=== PATIENT | female | born 1940 | race Caucasian/White ===

== ENCOUNTER 2016-12-31 13:17 | Inpatient (IN) | payer OTHER, MEDICARE ==
[2016-12-31] VITALS (10 sets, daily range): BP systolic 80–93; BP diastolic 43–52; PULSE 73–92; RESP 18–26; TEMP 97.9–98.5; O2SAT 93–100
[~2016-12-31] VITALS: Ht 157.5 cm; Wt 61.1 kg
[2016-12-31] MEDS ORDERED: SODIUM CHLOR 0.9% 1000 ML INJ 1,000 ML IV SCH (13:33)
[2016-12-31] MEDS ORDERED: SODIUM CHLORIDE 0.9% FLUSH 10 ML FLUSH IV FLUSH PRN ×2 (13:45→16:15)
[2016-12-31 13:56] LABS: HEMATOCRIT 25.8 % (35.0-46.0); MEAN CELL VOLUME 88.3 FL (80.0-100.0); MEAN CORPUSCULAR HEMOGLOBIN 29.2 PG (27.0-34.0); PLATELET COUNT 162 TH/MM3 (150-450); RED BLOOD COUNT 2.92 MIL/MM3 (4.00-5.30); RED CELL DISTRIBUTION WIDTH 15.5 % (11.6-17.2); WHITE BLOOD COUNT 11.9 TH/MM3 (4.0-11.0)
[2016-12-31 14:01] LABS: HEMO FLAGS AUTO DIFF
[2016-12-31 14:04] LABS: PROTHROMBIN TIME - PATIENT 11.3 SEC (9.8-11.6)
--- NOTE | 2016-12-31 14:42 | PD ---
HPI Chief Complaint: Abnormal Results Time Seen by Provider: 13:28 Travel History International Travel<30 days: No Contact w/Intl Traveler<30days: No Traveled to known affect area: No History of Present Illness HPI 76-year-old female came to the emergency room for history of lightheadedness and hypotension. 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 She was in [place] for 6 weeks where she was given blood transfusion multiple times for significant anemia. She also had multiple workup done to find out the reason for her anemia and all the test results as per the patient were within normal limits. Finally got the diagnosis of MDS. She has a manager assurance here she sees who is Dr. Bowen. Patient went to see her primary care physician today and mentioned about the lightheadedness. Blood pressure was low in the office and she was sent here to be evaluated. In triage her blood pressure was in the 80s. Patient was brought in straight back. No history of chest pain. No history of nausea vomiting or diarrhea. No history of bleeding from anywhere. Patient says her last hemoglobin one week ago was 9. PFSH Past Medical History Narrative Medical List of her past medical, surgical, social and family history is reviewed from the nursing note. Cardiovascular Problems: Yes Medical other: Yes (MDA, LUMBARECTOMY ) Tetanus Vaccination: < 5 Years Influenza Vaccination: Yes Past Surgical History Hysterectomy: Yes Other Surgery: Yes (RIGHT LUMPECTOMY) Social History Alcohol Use: No Tobacco Use: Yes Substance Use: No Allergies-Medications (Allergen,Severity, Reaction): Coded Allergies: penicillin G (Verified Allergy, Severe, SWELLING, RASH, 12/31/16) Comments List of her allergies reviewed from the nursing note. Reported Meds & Prescriptions Reported Meds & Active Scripts Active Active Prescriptions or Reported Medications Unobtainable Narrative Medication List of her home medications reviewed from the nursing note Review of Systems Except as stated in HPI: all other systems reviewed are Neg Physical Exam Narrative GENERAL: Awake, alert, moderate distress SKIN: Focused skin assessment warm/dry. Pale HEAD: Atraumatic. Normocephalic. EYES: Pupils equal and round. No scleral icterus. No injection or drainage. ENT: No nasal bleeding or discharge. Mucous membranes pink and moist. NECK: Trachea midline. No JVD. CARDIOVASCULAR: Regular rate and rhythm. No murmur appreciated. RESPIRATORY: No accessory muscle use. Clear to auscultation. Breath sounds equal bilaterally. GASTROINTESTINAL: Abdomen soft, non-tender, nondistended. Hepatic and splenic margins not palpable. MUSCULOSKELETAL: No obvious deformities. No clubbing. No cyanosis. No edema. NEUROLOGICAL: Awake and alert. No obvious cranial nerve deficits. Motor grossly within normal limits. Normal speech. PSYCHIATRIC: Appropriate mood and affect; insight and judgment normal. Data Data Last Documented VS Vital Signs Date Time Temp Pulse Resp B/P (MAP) Pulse Ox O2 Delivery O2 Flow Rate FiO2 12/31/16 14:44 74 21 80/45 (57) 100 Room Air 12/31/16 13:40 98.4 Orders Orders Complete Blood Count With Diff (12/31/16 13:33) Comprehensive Metabolic Panel (12/31/16 13:33) Prothrombin Time / Inr (Pt) (12/31/16 13:33) Urinalysis - C+S If Indicated (12/31/16 13:33) Iv Access Insert/Monitor (12/31/16 13:33) Ecg Monitoring (12/31/16 13:33) Oximetry (12/31/16 13:33) Sodium Chlor 0.9% 1000 Ml Inj (Ns 1000 M (12/31/16 13:33) Sodium Chloride 0.9% Flush (Ns Flush) (12/31/16 13:45) Electrocardiogram (12/31/16 13:33) Type And Screen (12/31/16 13:33) Sodium Chlor 0.9% 1000 Ml Inj (Ns 1000 M (12/31/16 14:45) Admit Order (Ed Use Only) (12/31/16 15:41) Labs Laboratory Tests Test 12/31/16 13:42 12/31/16 14:15 12/31/16 14:42 White Blood Count 11.9 TH/MM3 Red Blood Count 2.92 MIL/MM3 Hemoglobin 8.5 GM/DL Hematocrit 25.8 % Mean Corpuscular Volume 88.3 FL Mean Corpuscular Hemoglobin 29.2 PG Mean Corpuscular Hemoglobin Concent 33.0 % Red Cell Distribution Width 15.5 % Platelet Count 162 TH/MM3 Mean Platelet Volume 12.1 FL CBC Comment AUTO DIFF Differential Total Cells Counted 100 Neutrophils % (Manual) 36 % Lymphocytes % 22 % Monocytes % 29 % Neutrophils # (Manual) 4.4 TH/MM3 Metamyelocytes 1 % Nucleated Red Blood Cells 7 /100 WBC Differential Comment FINAL DIFF MANUAL Atypical Lymphocytes % Blastocytes 12 % Platelet Estimate NORMAL Platelet Morphology Comment ENLARGED Prothrombin Time 11.3 SEC Prothromb Time International Ratio 1.0 RATIO Blood Urea Nitrogen 17 MG/DL Creatinine 0.64 MG/DL Random Glucose 84 MG/DL Total Protein 5.0 GM/DL Albumin 2.6 GM/DL Calcium Level 7.3 MG/DL Alkaline Phosphatase 36 U/L Aspartate Amino Transf (AST/SGOT) 15 U/L Alanine Aminotransferase (ALT/SGPT) 15 U/L Total Bilirubin 0.6 MG/DL Sodium Level 142 MEQ/L Potassium Level 4.0 MEQ/L Chloride Level 110 MEQ/L Carbon Dioxide Level 26.2 MEQ/L Anion Gap 6 MEQ/L Estimat Glomerular Filtration Rate 90 ML/MIN Protein Corrected Calcium 8.5 MG/DL Urine Color YELLOW Urine Turbidity CLEAR Urine pH 6.5 Urine Specific [place] 1.010 Urine Protein NEG mg/dL Urine Glucose (UA) NEG mg/dL Urine Ketones NEG mg/dL Urine Occult Blood NEG Urine Nitrite NEG Urine Bilirubin NEG Urine Urobilinogen LESS THAN 2.0 MG/DL Urine Leukocyte Esterase NEG Urine WBC 1 /hpf Urine Squamous Epithelial Cells 1 /hpf Urine Bacteria OCC /hpf Microscopic Urinalysis Comment CULT NOT INDICATED MDM Medical Decision Making Medical Screen Exam Complete: Yes Emergency Medical Condition: Yes Medical Record Reviewed: Yes Interpretation(s) Twelve-lead EKG is reviewed by me. Normal sinus rhythm, left axis deviation, nonspecific ST-T wave changes. Heart rate of 76 beats per minute. Differential Diagnosis hypovolemia, symptomatic anemia, elect right abnormalities Narrative Course 3:40 PM blood test results of back and hemoglobin is 8.5 which is not significantly changed since her last hemoglobin. Patient is getting second liter of IV fluid bolus. She continues to be hypotensive. I have admitted her to the hospitalist. 4:58 PM I got a phone call from Dr. Hoffman from pathology who wanted to let me know that on patient's peripheral smear she saw multiple blasts with Shanelle rods. She wanted me to let an oncologist know. Since patient has oncologist I spoke with Dr. Bowen was notified about this. I will let the hospitalist know about this as well. Procedures EKG Prior to Arrival: No Physician Communication Physician Communication Dr. Jessi Portillo Diagnosis Primary Impression: Hypotension Qualified Codes: I95.9 - Hypotension, unspecified Additional Impression: Blast leukemia Qualified Codes: C95.00 - Acute leukemia of unspecified cell type not having achieved remission Admitting Information Admitting Physician Requests: Observation Scripts Unable to Obtain Active Prescriptions or Reported Meds Michael Fernandez MD Dec 31, 2016 14:42
[2016-12-31 14:43] LABS: BICARBONATE 26.2 MEQ/L (21.0-32.0); CALCIUM-PROTEIN CORRECTED 8.5 MG/DL (8.5-10.1); TOTAL BILIRUBIN ADULT 0.6 MG/DL (0.2-1.0)
[2016-12-31] MEDS ORDERED: SODIUM CHLOR 0.9% 1000 ML INJ 1,000 ML IV ONE ×3 (14:45→23:15)
[2016-12-31 14:47] LABS: BLASTS 12 % (0-0); CORRECTED NUCLEATED RBC 7 /100 WBC (0-0); METAMYELOCYTES 1 % (0-1); NEUTROPHIL # MANUAL DIFF 4.4 TH/MM3 (1.8-7.7); POLYS (SEG NEUTROPHILS) 36 % (16-70); WBC DIFF SAMPLE 100
[2016-12-31 14:48] LABS: PLATELET ESTIMATE SMEAR NORMAL (NORMAL); PLATELET MORPHOLOGY ENLARGED (NORMAL); SCAN/DIFF FINAL DIFF MANUAL
[2016-12-31 15:02] LABS: BACTERIA, URINE OCC /hpf; BLOOD, URINE NEG (NEG); COMMENT (UR) CULT NOT INDICATED; CULTURE IF INDICATED CULT NOT INDICATED; GLUCOSE,URINE NEG (NEG); KETONE, URINE NEG (NEG); NITRITE,URINE NEG (NEG); PH, URINE 6.5 (5.0-8.5); SQUAMOUS EPITHELIAL CELL URINE 1 /hpf (0-5); URINE COLOR YELLOW (YELLW/STRAW)
--- NOTE | 2016-12-31 16:09 | HHI.HP ---
[facility] Service [facility] Primary Care Physician Raza Zuluaga M.D. Admission Diagnosis hypotension, anemia Diagnoses: Travel History International Travel<30 Days: No Contact w/Intl Traveler <30 Da: No Traveled to Known Affected Are: No Past Family Social History Past Medical History Cardiovascular Problems: Yes MDS Past Surgical History Hysterectomy: Yes Other Surgery: Yes (RIGHT LUMPECTOMY) Allergies: Coded Allergies: penicillin G (Verified Allergy, Severe, SWELLING, RASH, 12/31/16) Social History Alcohol Use: No Tobacco Use: Yes Substance Use: No Physical Exam Vital Signs Vital Signs Date Time Temp Pulse Resp B/P (MAP) Pulse Ox O2 Delivery O2 Flow Rate FiO2 12/31/16 14:44 74 21 80/45 (57) 100 Room Air 12/31/16 13:40 98.4 79 26 84/49 (61) 98 Room Air 12/31/16 13:38 23 98 Room Air 12/31/16 13:31 84 20 98 Room Air 12/31/16 13:24 83 23 93/52 (66) 96 12/31/16 13:19 98.4 92 20 84/43 (57) 93 Physical Exam GENERAL: This is a well-nourished, well-developed patient, in no apparent distress. SKIN: No rashes, ecchymoses or lesions. Cool and dry. HEAD: Atraumatic. Normocephalic. No temporal or scalp tenderness. EYES: Pupils equal round and reactive. Extraocular motions intact. No scleral icterus. No injection or drainage. ENT: Nose without bleeding, purulent drainage or septal hematoma. Throat without erythema, tonsillar hypertrophy or exudate. Uvula midline. Airway patent. NECK: Trachea midline. No JVD or lymphadenopathy. Supple, nontender, no meningeal signs. CARDIOVASCULAR: Regular rate and rhythm without murmurs, gallops, or rubs. RESPIRATORY: Clear to auscultation. Breath sounds equal bilaterally. No wheezes , rales, or rhonchi. GASTROINTESTINAL: Abdomen soft, non-tender, nondistended. No hepato-splenomegaly , or palpable masses. No guarding. MUSCULOSKELETAL: Extremities without clubbing, cyanosis, or edema. No joint tenderness, effusion, or edema noted. No calf tenderness. Negative Homans sign bilaterally. NEUROLOGICAL: Awake and alert. Cranial nerves II through XII intact. Motor and sensory grossly within normal limits. Five out of 5 muscle strength in all muscle groups. Normal speech. Laboratory Laboratory Tests Test 12/31/16 13:42 12/31/16 14:15 12/31/16 14:42 White Blood Count 11.9 Red Blood Count 2.92 Hemoglobin 8.5 Hematocrit 25.8 Mean Corpuscular Volume 88.3 Mean Corpuscular Hemoglobin 29.2 Mean Corpuscular Hemoglobin Concent 33.0 Red Cell Distribution Width 15.5 Platelet Count 162 Mean Platelet Volume 12.1 CBC Comment AUTO DIFF Differential Total Cells Counted 100 Neutrophils % (Manual) 36 Lymphocytes % 22 Monocytes % 29 Neutrophils # (Manual) 4.4 Metamyelocytes 1 Nucleated Red Blood Cells 7 Differential Comment FINAL DIFF MANUAL Atypical Lymphocytes Blastocytes 12 Platelet Estimate NORMAL Platelet Morphology Comment ENLARGED Prothrombin Time 11.3 Prothromb Time International Ratio 1.0 Blood Urea Nitrogen 17 Creatinine 0.64 Random Glucose 84 Total Protein 5.0 Albumin 2.6 Calcium Level 7.3 Alkaline Phosphatase 36 Aspartate Amino Transf (AST/SGOT) 15 Alanine Aminotransferase (ALT/SGPT) 15 Total Bilirubin 0.6 Sodium Level 142 Potassium Level 4.0 Chloride Level 110 Carbon Dioxide Level 26.2 Anion Gap 6 Estimat Glomerular Filtration Rate 90 Protein Corrected Calcium 8.5 Urine Color YELLOW Urine Turbidity CLEAR Urine pH 6.5 Urine Specific [place] 1.010 Urine Protein NEG Urine Glucose (UA) NEG Urine Ketones NEG Urine Occult Blood NEG Urine Nitrite NEG Urine Bilirubin NEG Urine Urobilinogen LESS THAN 2.0 Urine Leukocyte Esterase NEG Urine WBC 1 Urine Squamous Epithelial Cells 1 Urine Bacteria OCC Microscopic Urinalysis Comment CULT NOT INDICATED Result Diagram: 12/31/16 1342 12/31/16 1415 Caprini VTE Risk Assessment Caprini Risk Assessment Model Point Value = 1 Point Value = 2 Point Value = 3 Point Value = 5 Age 41-60 Minor surgery BMI > 25 kg/m2 Swollen legs Varicose veins or History of unexplained or recurrent spontaneous Oral contraceptives or hormone replacement Sepsis (< 1 month) Serious lung disease, including pneumonia (< 1 month) Abnormal pulmonary function Acute myocardial infarction Congestive heart failure (< 1 month) History of inflammatory bowel disease Medical patient at bed rest Age 61-74 Arthroscopic surgery Major open surgery (> 45 min) Laparoscopic surgery (> 45 min) Malignancy Confined to bed (> 72 hours) Immobilizing plaster cast Central venous access Age >= 75 History of VTE Family history of VTE Factor V Leiden Prothrombin [id number] Lupus anticoagulant Anticardiolipin antibodies Elevated serum homocysteine Heparin-induced thrombocytopenia Other congenital or acquired thrombophilia Stroke (< 1 month) Elective arthroplasty Hip, pelvis, or leg fracture Acute spinal cord injury (< 1 month) Prophylaxis Regimen Total Risk Factor Score Risk Level Prophylaxis Regimen 0-1 Low Early ambulation 2 Moderate Order ONE of the following: *Sequential Compression Device (SCD) *Heparin 5000 units SQ BID 3-4 Higher Order ONE of the following medications: *Heparin 5000 units SQ TID *Enoxaparin/Lovenox 40 mg SQ daily (WT < 150 kg, CrCl > 30 mL/min) *Enoxaparin/Lovenox 30 mg SQ daily (WT < 150 kg, CrCl > 10-29 mL/min) *Enoxaparin/Lovenox 30 mg SQ BID (WT < 150 kg, CrCl > 30 mL/min) AND/OR *Sequential Compression Device (SCD) 5 or more Highest Order ONE of the following medications: *Heparin 5000 units SQ TID (Preferred with Epidurals) *Enoxaparin/Lovenox 40 mg SQ daily (WT < 150 kg, CrCl > 30 mL/min) *Enoxaparin/Lovenox 30 mg SQ daily (WT < 150 kg, CrCl > 10-29 mL/min) *Enoxaparin/Lovenox 30 mg SQ BID (WT < 150 kg, CrCl > 30 mL/min) AND *Sequential Compression Device (SCD) Jayce Boyer MD Dec 31, 2016 16:09
[2016-12-31] MEDS ORDERED: NALOXONE HCL 0.4 MG/ML AMP IV PUSH PRN (16:15)
[2016-12-31] MEDS ORDERED: ONDANSETRON HCL 4 MG/2 ML VIAL IVP PRN (16:15)
[2016-12-31] MEDS ORDERED: ACETAMINOPHEN 325 MG TAB PO PRN ×2 (16:15)
[2016-12-31] MEDS ORDERED: RESP: ALBUTEROL 2.5 MG/IPRATROPIUM 0.5 MG NEB (PRN) NEB (16:15)
[2016-12-31] MEDS ORDERED: MAGNESIUM HYDROXIDE SUSP 30 ML CUP PO PRN (16:15)
[2016-12-31] MEDS: SODIUM CHLOR 0.9% 1000 ML INJ 1,000 ML IV SCH (16:42)
--- NOTE | 2016-12-31 16:58 | HHI.HP ---
HPI Service [facility] Primary Care Physician Raza Zuluaga M.D. Admission Diagnosis hypotension, anemia Diagnoses: (1) Benign hypertension (2) Hyperlipidemia (3) Blast leukemia (4) MDS (myelodysplastic syndrome) (5) Hypotension Chief Complaint: Abnormal lab Travel History International Travel<30 Days: No Contact w/Intl Traveler <30 Da: No Traveled to Known Affected Are: No History of Present Illness 76-year-old female with a history of breast cancer, hypertension, and recently diagnosed MDS, to the ED for evaluation of worsening lightheadedness, generalized weakness and decreased appetite. Patient was seen today by her PCP with advice to come to the ED for evaluation of hypotension. Patient was found to have BP of 84/43. She denies any GI bleed, hematuria or hemoptysis. Hemoglobin of 8.5, however patient states about a week ago or hemoglobin was over 9. Patient was recently in [place] where she was diagnosed with MDS after multiple workup was done for her anemia, for which she's had multiple blood transfusion. She reports shortness of breath however denies any chest pain. She states, over the past several days she has been feeling tired and more sleepy. Over the past 12 months, patient has lost over 80 pounds. Review of Systems Except as stated in HPI: all other systems reviewed are Neg Past Family Social History Past Medical History Cardiovascular Problems: Yes MDS Past Surgical History Hysterectomy: Yes Other Surgery: Yes (RIGHT LUMPECTOMY) Reported Medications see EMR Allergies: Coded Allergies: penicillin G (Verified Allergy, Severe, SWELLING, RASH, 12/31/16) Family History Father from complication of leukemia Mother had breast cancer Sister had Breast cancer Brother had Colon cancer Social History Alcohol Use: No Tobacco Use: Yes Substance Use: No Physical Exam Vital Signs Vital Signs Date Time Temp Pulse Resp B/P (MAP) Pulse Ox O2 Delivery O2 Flow Rate FiO2 12/31/16 14:44 74 21 80/45 (57) 100 Room Air 12/31/16 13:40 98.4 79 26 84/49 (61) 98 Room Air 12/31/16 13:38 23 98 Room Air 12/31/16 13:31 84 20 98 Room Air 12/31/16 13:24 83 23 93/52 (66) 96 12/31/16 13:19 98.4 92 20 84/43 (57) 93 Physical Exam GENERAL: Frail elderly patient in no acute distress SKIN: No rashes, ecchymoses or lesions. Cool and dry. HEAD: Atraumatic. Normocephalic. No temporal or scalp tenderness. EYES: Pupils equal round and reactive. Extraocular motions intact. No scleral icterus. No injection or drainage. ENT: Nose without bleeding, purulent drainage or septal hematoma. Throat without erythema, tonsillar hypertrophy or exudate. Uvula midline. Airway patent. NECK: Trachea midline. No JVD or lymphadenopathy. Supple, nontender, no meningeal signs. CARDIOVASCULAR: Regular rate and rhythm with II/ EFFIE RESPIRATORY: Clear to auscultation. Breath sounds equal bilaterally. No wheezes , rales, or rhonchi. GASTROINTESTINAL: Abdomen soft, non-tender, nondistended. No hepato-splenomegaly , or palpable masses. No guarding. MUSCULOSKELETAL: Extremities without clubbing, cyanosis, or edema. No joint tenderness, effusion, or edema noted. No calf tenderness. Negative Homans sign bilaterally. NEUROLOGICAL: Awake and alert. Cranial nerves II through XII intact. Motor and sensory grossly within normal limits. Five out of 5 muscle strength in all muscle groups. Normal speech. Laboratory Laboratory Tests Test 12/31/16 13:42 12/31/16 14:15 12/31/16 14:42 White Blood Count 11.9 Red Blood Count 2.92 Hemoglobin 8.5 Hematocrit 25.8 Mean Corpuscular Volume 88.3 Mean Corpuscular Hemoglobin 29.2 Mean Corpuscular Hemoglobin Concent 33.0 Red Cell Distribution Width 15.5 Platelet Count 162 Mean Platelet Volume 12.1 CBC Comment AUTO DIFF Differential Total Cells Counted 100 Neutrophils % (Manual) 36 Lymphocytes % 22 Monocytes % 29 Neutrophils # (Manual) 4.4 Metamyelocytes 1 Nucleated Red Blood Cells 7 Differential Comment FINAL DIFF MANUAL Atypical Lymphocytes Blastocytes 12 Platelet Estimate NORMAL Platelet Morphology Comment ENLARGED Prothrombin Time 11.3 Prothromb Time International Ratio 1.0 Blood Urea Nitrogen 17 Creatinine 0.64 Random Glucose 84 Total Protein 5.0 Albumin 2.6 Calcium Level 7.3 Alkaline Phosphatase 36 Aspartate Amino Transf (AST/SGOT) 15 Alanine Aminotransferase (ALT/SGPT) 15 Total Bilirubin 0.6 Sodium Level 142 Potassium Level 4.0 Chloride Level 110 Carbon Dioxide Level 26.2 Anion Gap 6 Estimat Glomerular Filtration Rate 90 Protein Corrected Calcium 8.5 Urine Color YELLOW Urine Turbidity CLEAR Urine pH 6.5 Urine Specific [place] 1.010 Urine Protein NEG Urine Glucose (UA) NEG Urine Ketones NEG Urine Occult Blood NEG Urine Nitrite NEG Urine Bilirubin NEG Urine Urobilinogen LESS THAN 2.0 Urine Leukocyte Esterase NEG Urine WBC 1 Urine Squamous Epithelial Cells 1 Urine Bacteria OCC Microscopic Urinalysis Comment CULT NOT INDICATED Result Diagram: 12/31/16 1342 12/31/16 1415 Caprini VTE Risk Assessment Caprini VTE Risk Assessment: Mod/High Risk (score >= 2) Caprini Risk Assessment Model Point Value = 1 Point Value = 2 Point Value = 3 Point Value = 5 Age 41-60 Minor surgery BMI > 25 kg/m2 Swollen legs Varicose veins or History of unexplained or recurrent spontaneous Oral contraceptives or hormone replacement Sepsis (< 1 month) Serious lung disease, including pneumonia (< 1 month) Abnormal pulmonary function Acute myocardial infarction Congestive heart failure (< 1 month) History of inflammatory bowel disease Medical patient at bed rest Age 61-74 Arthroscopic surgery Major open surgery (> 45 min) Laparoscopic surgery (> 45 min) Malignancy Confined to bed (> 72 hours) Immobilizing plaster cast Central venous access Age >= 75 History of VTE Family history of VTE Factor V Leiden Prothrombin [id number] Lupus anticoagulant Anticardiolipin antibodies Elevated serum homocysteine Heparin-induced thrombocytopenia Other congenital or acquired thrombophilia Stroke (< 1 month) Elective arthroplasty Hip, pelvis, or leg fracture Acute spinal cord injury (< 1 month) Prophylaxis Regimen Total Risk Factor Score Risk Level Prophylaxis Regimen 0-1 Low Early ambulation 2 Moderate Order ONE of the following: *Sequential Compression Device (SCD) *Heparin 5000 units SQ BID 3-4 Higher Order ONE of the following medications: *Heparin 5000 units SQ TID *Enoxaparin/Lovenox 40 mg SQ daily (WT < 150 kg, CrCl > 30 mL/min) *Enoxaparin/Lovenox 30 mg SQ daily (WT < 150 kg, CrCl > 10-29 mL/min) *Enoxaparin/Lovenox 30 mg SQ BID (WT < 150 kg, CrCl > 30 mL/min) AND/OR *Sequential Compression Device (SCD) 5 or more Highest Order ONE of the following medications: *Heparin 5000 units SQ TID (Preferred with Epidurals) *Enoxaparin/Lovenox 40 mg SQ daily (WT < 150 kg, CrCl > 30 mL/min) *Enoxaparin/Lovenox 30 mg SQ daily (WT < 150 kg, CrCl > 10-29 mL/min) *Enoxaparin/Lovenox 30 mg SQ BID (WT < 150 kg, CrCl > 30 mL/min) AND *Sequential Compression Device (SCD) Assessment and Plan Problem List: (1) Symptomatic hypotension ICD Code: I95.89 - Other hypotension Assessment and Plan 76-year-old female with Symptomatic hypotension H&H stable with no evidence of GI bleed BP on admission 84/43 Status post 2 L NS bolus in ED IV fluid NS@84 cc/hr Hold all oral antihypertensive medication MDS H&H stable However 2/2 a presence of multiple blasts with Shanelle rods on patient's peripheral smear per her Pathologist who spoke to ED physician, will consult Oncology Hyperlipidemia Resume statin Leukocytosis Stress reactive Monitor DVT prophylaxis: SCDs Code Status Full code Discussed Condition With Patient, asthma, ED physician Physician Certification 2 Midnight Certification Type: Admission for Inpatient Services Order for Inpatient Services The services are ordered in accordance with Medicare regulations or non- Medicare payer requirements, as applicable. In the case of services not specified as inpatient-only, they are appropriately provided as inpatient services in accordance with the 2-midnight benchmark. Estimated LOS (days): 2 days is the estimated time the patient will need to remain in the hospital, assuming treatment plan goals are met and no additional complications. Post-Hospital Plan: Not yet determined Problem Qualifiers (1) Hypotension: Qualified Codes: I95.9 - Hypotension, unspecified Jayce Boyer MD Dec 31, 2016 16:58
[2016-12-31] MEDS: SODIUM CHLORIDE 0.9% FLUSH 10 ML FLUSH IV FLUSH SCH (21:00)
[2017-01-01] VITALS (17 sets, daily range): BP systolic 78–102; BP diastolic 40–60; PULSE 70–78; RESP 16–19; TEMP 97.3–99.6; O2SAT 92–98
[2017-01-01 03:11] LABS: BICARBONATE 23.9 MEQ/L (21.0-32.0); CALCIUM-PROTEIN CORRECTED 8.1 MG/DL (8.5-10.1); POTASSIUM 3.9 MEQ/L (3.5-5.1); TOTAL BILIRUBIN ADULT 0.5 MG/DL (0.2-1.0)
[2017-01-01 03:14] LABS: MEAN CELL VOLUME 88.3 FL (80.0-100.0); MEAN CORPUSCULAR HEMOGLOBIN 28.6 PG (27.0-34.0); MEAN CORPUSCULAR HGB CONC 32.4 % (32.0-36.0); PLATELET COUNT 127 TH/MM3 (150-450); RED BLOOD COUNT 2.36 MIL/MM3 (4.00-5.30); RED CELL DISTRIBUTION WIDTH 15.9 % (11.6-17.2); WHITE BLOOD COUNT 7.8 TH/MM3 (4.0-11.0)
[2017-01-01 03:15] LABS: HEMO FLAGS AUTO DIFF
[2017-01-01] MEDS ORDERED: FUROSEMIDE 20 MG/2 ML VIAL IV PUSH ONE (03:15)
[2017-01-01] MEDS ORDERED: SODIUM CHLOR 0.9% 250 ML INJ 250 ML IV ONE (03:15)
[2017-01-01 03:19] LABS: HEMATOCRIT 20.9 % (35.0-46.0)
[2017-01-01 04:05] LABS: BLASTS 12 % (0-0); CORRECTED NUCLEATED RBC 14 /100 WBC (0-0); EOSINOPHILS 1 % (0-4); NEUTROPHIL # MANUAL DIFF 3.1 TH/MM3 (1.8-7.7); POLYS (SEG NEUTROPHILS) 40 % (16-70); WBC DIFF SAMPLE 100
[2017-01-01 04:07] LABS: OVALOCYTES 1+ (NORMAL); PLATELET ESTIMATE SMEAR LOW (NORMAL); PLATELET MORPHOLOGY ENLARGED (NORMAL); SCAN/DIFF FINAL DIFF MANUAL
[2017-01-01 04:08] LABS: KERATOCYTES OCC (NORMAL)
[2017-01-01 04:10] LABS: BURR CELLS 1+ (NORMAL)
[2017-01-01] MEDS: SODIUM CHLOR 0.9% 1000 ML INJ 1,000 ML IV SCH ×2 (04:10→16:05)
--- NOTE | 2017-01-01 05:14 | EKG ---
Date Performed: 12/31/2016 Time Performed: 13:52:06 PTAGE: 76 years EKG: Sinus rhythm POSSIBLE RIGHT VENTRICULAR CONDUCTION DELAY BORDERLINE ECG NO PREVIOUS TRACING DOCTOR: Devon Slade Interpretating Date/Time 01/01/2017 05:08:01
[2017-01-01] MEDS: SODIUM CHLORIDE 0.9% FLUSH 10 ML FLUSH IV FLUSH SCH ×2 (09:00→21:00)
[2017-01-01] MEDS ORDERED: FUROSEMIDE 20 MG/2 ML VIAL IV PUSH PRN (10:00)
[2017-01-01] MEDS ORDERED: INFLUENZA VIRUS VACCINE (QUADRIVALENT) 0.5 ML SYR IM ONE (10:00)
--- NOTE | 2017-01-01 11:52 | MB ---
cc: ALBARO CRESPO M.D., ZAFAR, MD PATEL, KASHYAP M.D. DATE OF CONSULTATION: 01/01/2017 DATE OF : 1940 REQUESTING PHYSICIAN: Hospitalist service. PRIMARY CARE PHYSICIAN Raza Zuluaga MD. Vika. PRIMARY ONCOLOGIST: Dr. Crespo REASON FOR CONSULTATION: Patient with recently diagnosed myelodysplastic syndrome, now presenting with progressive symptomatic anemia. OTHER ONCOLOGIC DIAGNOSIS: Patient with a diagnosis of infiltrating ductal carcinoma of the right breast diagnosed in 2016. She is status post lumpectomy and external beam external beam radiation. She is presently on adjuvant endocrine therapy with anastrozole. Her disease with stage IA-(T1b N0 M0 ER 100% positive, MO 98% positive, HER2/CIERA Non amplified). CHIEF COMPLAINT Progressive fatigue, weakness and difficulty breathing. She also reports having lost about 80 pounds over the past year and half HISTORY OF PRESENT ILLNESS Ms. Phillips is a very pleasant 76-year-old female who is originally from [facility], [place]. She presently lives at home with her boyfriend of many years. She tells me she has seven children all of whom live in [facility] [place]. She is a retired day care worker. Ms. Phillips reports being in her usual state of health up until earlier this summer when she began to notice progressive fatigue and weakness. She was in [place], [place] at the time. And had to be taken into a local hospital; [facility]. There she was found to be anemic. She is given 3 units of packed red blood cells as the patient describes and was discharged home. This occurred in early October 2016. She reports feeling transiently better, however on November 30 she had to be taken back to hospital due to progressive fatigue and weakness. This time she was found to be anemic again and was evaluated by reliability specialist (the name of whom the patient does not recall). She was recommended a bone marrow biopsy which was performed and [facility] [place] in mid November; the bone marrow biopsy revealed findings consistent with myelodysplastic syndrome. The patient was told specifically that she did not have leukemia but she was at high risk for developing leukemia and was recommended reevaluation when she returned to [place] for initiation of systemic therapy to prevent progression to leukemia. The patient returned to [place] in late November. She brought with her records which she forwarded to her primary care physician's office. She was scheduled to meet with Dr. Crespo at some point in the next few weeks. However, her fatigue, weakness and breathlessness progressed and she came into [facility] yesterday. She was noted to have anemia which has worsened over the course of past 24 hours; presenting hemoglobin was 8.5 gm/dl, present hemoglobin 6.8 gm/dl. She does also have mild thrombocytopenia and circulating blasts. The hematology service has been asked to see her for additional management of her newly diagnosed myelodysplastic syndrome. PAST MEDICAL HISTORY 1. Infiltrating ductal carcinoma of the right breast diagnosed in 2016. 2. Current smoker with a great and 60 pack-year history of smoking, heart become. 3. Valvular heart disease. 4. Recently diagnosed myelodysplastic syndrome. PAST SURGICAL HISTORY 1. Hysterectomy. 2. Back surgery. 3. Esophagogastroduodenoscopy 4. Colonoscopy 5. Bone marrow biopsy. SOCIAL HISTORY: She lives at home with her boyfriend. She was in 2003. She is originally from [facility] [place] and worked for a [employer] in [place]. She reports smoking one pack a day since she was in her early 20s. She denies alcohol abuse, she denies drug abuse. FAMILY HISTORY Father of leukemia with the patient was a young child. Mother of untreated breast carcinoma. Sister has a diagnosis of breast cancer. She is a survivor. Brother of complications of colon cancer. GYNECOLOGIC HISTORY 7, para 7. She is status post hysterectomy. ALLERGIES PENICILLIN CAUSES RASH. INPATIENT MEDICATIONS: 1. Current inpatient medications; Normal saline 84 cc per hour. 2. Tylenol 650 mg p.o. q.4 h as needed for fever. 3. DuoNeb 1 ampule every 2 hours as needed for shortness of breath or wheezing. 4. Lasix 20 mg IV x1. 5. Zofran 4 mg IV q.6 h for nausea and vomiting. REVIEW OF SYSTEMS 13-point review of systems was obtained the following the pertinent positives and negatives: Constitutional: Loss of appetite, unintended weight loss of 80 pounds of the past year and half, fatigue, weakness and breathlessness with minimal exertion. HEAD, EYES, EARS, NOSE, AND THROAT: Denies headaches, blurry vision, she reports having chronic loss of hearing. She also reports a discharge from her right year which is clear and foul-smelling. She denies difficulty swallowing. RESPIRATORY: Exertional dyspnea, denies cough or hemoptysis. Denies pleuritic chest. CARDIOVASCULAR SYSTEM: Denies angina-like chest pain, PND, orthopnea. Denies lower extremity swelling. GASTROINTESTINAL: Denies nausea, vomiting, diarrhea hematochezia, melena. She denies hematemesis. She denies abdominal distension or yellow jaundice. GENITOURINARY: No complaints of dysuria, hematuria, urinary incontinence. CENTRAL NERVOUS SYSTEM: Denies any focal sensory or motor deficits. No other complaints reported. PHYSICAL EXAMINATION VITAL SIGNS: 98.7 degrees Fahrenheit, heart rate 75 beats a minute, respiratory rate 19, blood pressure 92/50, O2 sats were 97% on room air. IN GENERAL APPEARANCE: Ms. Pina is an elderly female, she is laying in bed, she appears to be no acute distress and has a very pleasant disposition. HEAD, EYES, EARS, NOSE, AND THROAT: Head atraumatic, normocephalic, conjunctive are pale sclerae are nonicteric, she has had bilateral cataract surgeries performed oral exam no pharyngeal erythema. NECK: Neck exam no palpable cervical or supraclavicular adenopathy. EAR: Right ear: The external auditory canal has and erythematic appearance with discharge just coating every surface. There is some discharge on the outside of the external auditory canal noted as well. LUNGS: Respiratory exam, good air movement bilaterally with prolonged expiratory phase. No added breath sounds. CARDIOVASCULAR SYSTEM: S1-S2 with a 2/6 systolic murmur heard over the aortic area. The rhythm is otherwise regular. ABDOMEN: Belly is thin, soft, nontender, no splenomegaly is noted, no inguinal lymphadenopathy. EXTREMITIES: No pretibial edema. No calf tenderness. CENTRAL NERVOUS SYSTEM: No focal sensory motor deficits. LABORATORY FINDINGS Blood work dated 01/01/2017: WBC count 7.8, hemoglobin 6.8 gm/dl, hematocrit 21%, platelet count is 127, absolute neutrophil count is 3.1. Blast percentage circulation on automated differential of 12%. Review of peripheral blood smear from blood drawn on 12/31/2016 (personally reviewed by myself): Red cell lineage: Anisocytosis is noted, bur cells were noted with ovalocytes as well. No red cell clumping or fragmentation. Platelets: There appears to be significant and anisocytosis with some very large platelets noted. No platelet clumping noted. Nucleated cell lineage: Numerous large and immature appearing myeloid / monocytic precursors noted. Occasional typical myeloid blasts is also appreciated with bland enlarged nuclei and scant cytoplasm is appreciated. I did see one blast with an hour maría elena and I think one additional blast with two hour rods, and cytoplasm. There were nucleated red cells appreciated as well as other dysplastic findings including increase basophils. Chemistries: Sodium 144, potassium 3.9, chloride one 04/01, bicarbonate 24, BUN 14, creatinine 0.44, EGFR 138, calcium 76.7, total bilirubin 0.5, AST 21, ALT 13, alkaline phosphatase 34, albumin 2.4. ASSESSMENT Ms. Rankin is a very pleasant 76-year-old female with a previous history of stage Ia estrogen receptor positive infiltrating ductal carcinoma of the right breast. She was treated surgically followed by adjuvant radiation and is now on adjuvant endocrine therapy. About 3 months ago she was found to have unexplained anemia. A bone marrow biopsy indicated findings consistent with myelodysplastic syndrome. She did undergo a GI workup including EGD and colonoscopy which was negative. The workup for the MDS was preformed in [facility] [place] at the [facility] in [facility]. The patient has since then travel back to [place] which is where her residence is and had been the process of reestablishing follow up with Dr. Crespo her primary oncologist when she developed progressive fatigue and weakness. She was found to have progressive anemia and has been admitted for transfusion support. RECOMMENDATIONS Myelodysplasia: I will request the bone marrow biopsy findings from [facility] [place]. The patient appears to have a high-risk myelodysplastic syndrome which likely fits with a RAEB-2 designation. She will be a candidate for a hypo hypomethylating agent once the diagnosis is established and confirmed and the results of the bone marrow biopsy had been verified by one of us. Additionally she may be a candidate for an RAFAEL for management of symptomatic anemia. For the time being I think that will be reasonable to continue supportive transfusions to maintain a hemoglobin over 8 gm/dl. Dr. Crespo will be back early next week to resume follow up and management. Her remote history of breast carcinoma: She had good risk disease and is in remission at this time. MD Riaz Hammond /10:24 AM /10:56 AM
--- NOTE | 2017-01-01 13:55 | HHI.PR ---
Subjective Remarks Follow-up symptomatic hypotension/MDS and now anemia of chronic disease 01/01/17-patient seen and examined, hemoglobin of 6.8 this morning; patient still feels weak and tired. Denies any bleeding. Objective Vitals Vital Signs Date Time Temp Pulse Resp B/P (MAP) Pulse Ox O2 Delivery O2 Flow Rate FiO2 01/01/17 12:30 97.9 77 18 87/42 96 01/01/17 12:10 99.1 75 18 82/42 01/01/17 12:06 98.6 73 18 82/42 98 01/01/17 12:00 97.9 77 19 87/42 (57) 96 01/01/17 11:52 99.1 75 18 84/44 01/01/17 11:28 99.6 78 16 88/48 01/01/17 08:00 98.7 75 19 92/50 (64) 97 Automatic Cuff 01/01/17 06:31 98.5 78 19 82/44 97 01/01/17 06:03 98.8 77 19 82/46 97 01/01/17 05:47 99.1 75 19 82/40 97 01/01/17 05:28 98.9 78 80/40 93 01/01/17 04:00 97.3 77 18 78/60 (66) 92 01/01/17 02:44 84/42 (56) 01/01/17 00:36 74 82/42 (55) 94 12/31/16 23:11 88/48 (61) 12/31/16 21:10 75 80/46 (57) 95 12/31/16 20:50 98.5 73 18 84/45 (58) 96 12/31/16 19:59 98 12/31/16 18:15 12/31/16 18:15 97.9 73 20 91/48 (62) 100 12/31/16 14:44 74 21 80/45 (57) 100 Room Air I/O 12/31/16 12/31/16 12/31/16 01/01/17 01/01/17 01/01/17 06:59 14:59 22:59 06:59 14:59 22:59 Intake Total 450 ml Balance 450 ml Packed Cells 400 ml Blood Product IV Normal Saline Flush 50 ml # Voids 1 1 # Bowel Movements 1 Result Diagram: 01/01/1720601/01/17206 Objective Remarks GENERAL: NAD SKIN: Warm and dry. HEAD: Normocephalic. EYES: No scleral icterus. No injection or drainage. NECK: Supple, trachea midline. No JVD or lymphadenopathy. CARDIOVASCULAR: Regular rate and rhythm with II/ EFFIE RESPIRATORY: Breath sounds equal bilaterally. No accessory muscle use. GASTROINTESTINAL: Abdomen soft, non-tender, nondistended. MUSCULOSKELETAL: No cyanosis, or edema. BACK: Nontender without obvious deformity. No CVA tenderness. A/P Problem List: (1) Symptomatic hypotension ICD Code: I95.89 - Other hypotension (2) Anemia of chronic disease ICD Code: D63.8 - Anemia in other chronic diseases classified elsewhere (3) MDS (myelodysplastic syndrome) ICD Code: D46.9 - Myelodysplastic syndrome, unspecified Assessment and Plan 76-year-old female with Symptomatic hypotension Hemoglobin of 6.8 for which patient will receive 2 units packed red blood cell Status post 2 L NS bolus in ED Continue IV fluid NS@84 cc/hr Hold all oral antihypertensive medication MDS Anemia of chronic disease Transfuse 2 units packed red blood cell 01/01/17 Appreciate input from hematology-oncology Hyperlipidemia Continue statin Leukocytosis Stress reactive Monitor DVT prophylaxis: Jayce Wong MD Jan 01, 2017 13:55
[2017-01-02] VITALS: BP 94/52; PULSE 76; RESP 18; TEMP 99.2; O2SAT 94
[2017-01-02 04:00] VITALS: BP 96/50; PULSE 72; RESP 18; TEMP 98.5; O2SAT 92
[2017-01-02] MEDS: SODIUM CHLOR 0.9% 1000 ML INJ 1,000 ML IV SCH (04:15)
[2017-01-02 08:00] VITALS: BP 91/44; PULSE 73; RESP 19; TEMP 98.6; O2SAT 91
[2017-01-02 08:37] LABS: HEMATOCRIT 26.8 % (35.0-46.0); MEAN CELL VOLUME 89.3 FL (80.0-100.0); MEAN CORPUSCULAR HEMOGLOBIN 29.7 PG (27.0-34.0); MEAN CORPUSCULAR HGB CONC 33.2 % (32.0-36.0); PLATELET COUNT 104 TH/MM3 (150-450); RED BLOOD COUNT 3.01 MIL/MM3 (4.00-5.30); RED CELL DISTRIBUTION WIDTH 15.3 % (11.6-17.2); WHITE BLOOD COUNT 7.9 TH/MM3 (4.0-11.0)
[2017-01-02 09:00] LABS: HEMO FLAGS AUTO DIFF
[2017-01-02] MEDS: SODIUM CHLORIDE 0.9% FLUSH 10 ML FLUSH IV FLUSH SCH ×2 (09:00→21:00)
[2017-01-02 09:11] LABS: BICARBONATE 23.8 MEQ/L (21.0-32.0); POTASSIUM 3.7 MEQ/L (3.5-5.1)
[2017-01-02 09:27] LABS: CALCIUM-PROTEIN CORRECTED 8.5 MG/DL (8.5-10.1)
[2017-01-02 09:31] LABS: BLASTS 8 % (0-0); CORRECTED NUCLEATED RBC 4 /100 WBC (0-0); EOSINOPHILS 1 % (0-4); NEUTROPHIL # MANUAL DIFF 3.1 TH/MM3 (1.8-7.7); POLYS (SEG NEUTROPHILS) 39 % (16-70); WBC DIFF SAMPLE 100
[2017-01-02 09:32] LABS: ACANTHOCYTES OCC (NORMAL); PLATELET ESTIMATE SMEAR LOW (NORMAL); PLATELET MORPHOLOGY NORMAL (NORMAL); SCAN/DIFF FINAL DIFF MANUAL
[2017-01-02 09:33] LABS: OVALOCYTES 1+ (NORMAL)
[2017-01-02 12:00] VITALS: BP 90/41; PULSE 76; RESP 19; TEMP 98.9; O2SAT 92
--- NOTE | 2017-01-02 12:07 | PD.ONC.PN ---
Subjective Subjective Remarks Afebrile overnight Pt resting in bed in no acute distress with spouse at bedside. No acute complaints Objective Data Date Time Temp Pulse Resp B/P (MAP) Pulse Ox O2 Delivery O2 Flow Rate FiO2 01/02/17 08:00 98.6 73 19 91/44 (60) 91 01/02/17 04:00 98.5 72 18 96/50 (65) 92 01/02/17 00:00 99.2 76 18 94/52 (66) 94 01/01/17 20:00 98.1 76 18 102/54 (70) 95 01/01/17 16:00 98.5 70 19 86/46 (59) 97 01/01/17 12:30 97.9 77 18 87/42 96 01/01/17 12:10 99.1 75 18 82/42 01/01/17 12:06 98.6 73 18 82/42 98 01/01/17 12:00 97.9 77 19 87/42 (57) 96 01/02/17 01/02/17 01/02/17 06:59 14:59 22:59 Intake Total 1120 ml Balance 1120 ml Result Diagram: 01/02/17 0807 01/02/17 0807 Laboratory Results Laboratory Tests Test 01/02/17 08:07 White Blood Count 7.9 TH/MM3 Red Blood Count 3.01 MIL/MM3 Hemoglobin 8.9 GM/DL Hematocrit 26.8 % Mean Corpuscular Volume 89.3 FL Mean Corpuscular Hemoglobin 29.7 PG Mean Corpuscular Hemoglobin Concent 33.2 % Red Cell Distribution Width 15.3 % Platelet Count 104 TH/MM3 Mean Platelet Volume 12.0 FL CBC Comment AUTO DIFF Differential Total Cells Counted 100 Neutrophils % (Manual) 39 % Lymphocytes % 19 % Monocytes % 33 % Eosinophils % 1 % Neutrophils # (Manual) 3.1 TH/MM3 Nucleated Red Blood Cells 4 /100 WBC Differential Comment FINAL DIFF MANUAL Blastocytes 8 % Platelet Estimate LOW Platelet Morphology Comment NORMAL Ovalocytes 1+ Acanthocytes OCC Blood Urea Nitrogen 15 MG/DL Creatinine 0.41 MG/DL Random Glucose 79 MG/DL Total Protein 4.7 GM/DL Calcium Level 7.2 MG/DL Sodium Level 142 MEQ/L Potassium Level 3.7 MEQ/L Chloride Level 114 MEQ/L Carbon Dioxide Level 23.8 MEQ/L Anion Gap 4 MEQ/L Estimat Glomerular Filtration Rate 150 ML/MIN Protein Corrected Calcium 8.5 MG/DL Administered Medications Medications (Trade) Dose Ordered Sig/Noemi Route PRN Reason Start Time Stop Time Status Last Admin Dose Admin Sodium Chloride (NS Flush) 2 ml BID IV FLUSH 12/31/16 21:00 01/01/17 21:00 Sodium Chloride 1,000 ml @ 84 mls/hr [id number] IV 12/31/16 16:15 01/02/17 04:15 Objective Remarks GENERAL: Older female, resting in bed in no acute distress SKIN: Warm and dry. HEAD: Normocephalic. Hard of hearing EYES: No injection or drainage. NECK: Supple, trachea midline. CARDIOVASCULAR: Regular rate and rhythm without murmurs. RESPIRATORY: Breath sounds equal bilaterally. No accessory muscle use. GASTROINTESTINAL: Abdomen soft, non-tender, nondistended. EXTREMITIES: No cyanosis, or edema. MUSCULOSKELETAL: Adequate muscle tone. NEUROLOGICAL: No obvious focal deficit. Awake, alert, and oriented x3. Assessment/Plan Problem List: (1) MDS (myelodysplastic syndrome) ICD Codes: D46.9 - Myelodysplastic syndrome, unspecified Plan: -- Awaiting bone marrow biopsy results from [facility]. -- Circulating blasts seen on peripheral differential. -- She will likely be a candidate for hypo-methylate agent once the diagnosis is confirmed. -- For now he will continue supportive transfusions to maintain hemoglobin greater than 8 g/dL. Hx/Workup: The patient reports an 80 pound weight loss over the past year and half. Earlier this summer she began to notice progressive fatigue and weakness. She was given multiple transfusions for anemia at [facility] [place]. At her last admission in [place] in early November she was evaluated by a regional branch manager who did a bone marrow biopsy and per the patient the findings were consistent with myelodysplastic syndrome. She underwent GI workup at that time with EGD and colonoscopy that was negative. She was told specifically that she had high risk for developing leukemia and was supposed to follow up when she returned to [place]. She was supposed to see Dr. Crespo in our clinic however had again symptomatic anemia that required admission to hospital. (2) Infiltrating duct carcinoma ICD Codes: C50.919 - Malignant neoplasm of unspecified site of unspecified female breast Plan: -- Patient with a diagnosis of infiltrating ductal carcinoma of the right breast diagnosed in 2016. She is status post lumpectomy and external beam radiation. -- She is presently on adjuvant endocrine therapy with anastrozole. -- Her disease with stage IA-(T1b N0 M0 ER 100% positive, VT 98% positive, HER2/ CIERA Non amplified). Assessment 76-year-old female with history of myelodysplastic syndrome admitted for syncope and hypotension Plan 1. Await records of bone marrow biopsy done in [facility] 2. Supportive transfusions to keep hemoglobin greater than 8 3. Monitor CBC Diana Hill Jan 02, 2017 12:07
--- NOTE | 2017-01-02 12:42 | HHI.PR ---
Subjective Remarks Follow-up symptomatic hypotension/MDS and now anemia of chronic disease 01/01/17-patient seen and examined, hemoglobin of 6.8 this morning; patient still feels weak and tired. Denies any bleeding. 01/02/17-patient seen and examined, H&H improved after transfusion of 2 units of blood yesterday. Feels a lot better and stronger today Objective Vitals Vital Signs Date Time Temp Pulse Resp B/P (MAP) Pulse Ox O2 Delivery O2 Flow Rate FiO2 01/02/17 12:00 98.9 76 19 90/41 (57) 92 01/02/17 08:00 98.6 73 19 91/44 (60) 91 01/02/17 04:00 98.5 72 18 96/50 (65) 92 01/02/17 00:00 99.2 76 18 94/52 (66) 94 01/01/17 20:00 98.1 76 18 102/54 (70) 95 01/01/17 16:00 98.5 70 19 86/46 (59) 97 I/O 01/01/17 01/01/17 01/01/17 01/02/17 01/02/17 01/02/17 07:00 15:00 23:00 07:00 15:00 23:00 Intake Total 950 ml 360 ml 1120 ml Balance 950 ml 360 ml 1120 ml Intake Oral 360 ml 120 ml IV Total 1000 ml Packed Cells 800 ml Blood Product IV Normal Saline Flush 150 ml # Voids 1 4 # Bowel Movements 1 3 Result Diagram: 01/02/1780601/02/17806 Objective Remarks GENERAL: NAD SKIN: Warm and dry. HEAD: Normocephalic. EYES: No scleral icterus. No injection or drainage. NECK: Supple, trachea midline. No JVD or lymphadenopathy. CARDIOVASCULAR: Regular rate and rhythm with II/ EFFIE RESPIRATORY: Breath sounds equal bilaterally. No accessory muscle use. GASTROINTESTINAL: Abdomen soft, non-tender, nondistended. MUSCULOSKELETAL: No cyanosis, or edema. BACK: Nontender without obvious deformity. No CVA tenderness. A/P Problem List: (1) Symptomatic hypotension ICD Code: I95.89 - Other hypotension (2) Anemia of chronic disease ICD Code: D63.8 - Anemia in other chronic diseases classified elsewhere (3) MDS (myelodysplastic syndrome) ICD Code: D46.9 - Myelodysplastic syndrome, unspecified Assessment and Plan 76-year-old female with Symptomatic hypotension s/p 2 units packed red blood cell 01/01/17 Status post 2 L NS bolus in ED d/c IV fluid NS@84 cc/hr Start midodrine 5 mg 3 times a day Hold all oral antihypertensive medication MDS Anemia of chronic disease Transfused 2 units packed red blood cell 01/01/17 Continue to monitor H&H Appreciate input from hematology-oncology Hyperlipidemia Continue statin Leukocytosis-resolved Stress reactive Monitor DVT prophylaxis: SCDs PT to treat and eval Jayce Boyer MD Jan 02, 2017 12:42
[2017-01-02 16:00] VITALS: BP 90/46; PULSE 81; RESP 19; TEMP 98.3; O2SAT 96
[2017-01-02] MEDS: MIDODRINE 5 MG TAB PO SCH (18:17)
[2017-01-02 20:00] VITALS: BP 95/52; PULSE 76; RESP 18; TEMP 99.5; O2SAT 92
[2017-01-03] VITALS: BP 100/60; PULSE 81; RESP 18; TEMP 98.5; O2SAT 95
[2017-01-03 04:00] VITALS: BP 94/54; PULSE 74; RESP 18; TEMP 97; O2SAT 95
[2017-01-03] MEDS: MIDODRINE 5 MG TAB PO SCH ×3 (06:15→17:16)
[2017-01-03 07:41] VITALS: BP 90/58; PULSE 67; RESP 20; TEMP 98.3; O2SAT 92
[2017-01-03] MEDS: SODIUM CHLORIDE 0.9% FLUSH 10 ML FLUSH IV FLUSH SCH ×2 (09:00→21:29)
[2017-01-03 10:14] LABS: HEMATOCRIT 27.6 % (35.0-46.0); MEAN CELL VOLUME 88.8 FL (80.0-100.0); MEAN CORPUSCULAR HEMOGLOBIN 29.7 PG (27.0-34.0); MEAN CORPUSCULAR HGB CONC 33.4 % (32.0-36.0); PLATELET COUNT 109 TH/MM3 (150-450); RED BLOOD COUNT 3.11 MIL/MM3 (4.00-5.30); RED CELL DISTRIBUTION WIDTH 15.4 % (11.6-17.2)
[2017-01-03 10:15] LABS: HEMO FLAGS AUTO DIFF
--- NOTE | 2017-01-03 10:32 | PD.ONC.PN ---
Subjective Subjective Remarks Afebrile overnight. Patient resting in bed in [facility]. No complaints. Objective Data Date Time Temp Pulse Resp B/P (MAP) Pulse Ox O2 Delivery O2 Flow Rate FiO2 01/03/17 07:41 98.3 67 20 90/58 (69) 92 01/03/17 04:00 97.0 74 18 94/54 (67) 95 01/03/17 00:00 98.5 81 18 100/60 (73) 95 01/02/17 20:00 99.5 76 18 95/52 (66) 92 01/02/17 16:00 98.3 81 19 90/46 (61) 96 01/02/17 12:00 98.9 76 19 90/41 (57) 92 01/03/17 01/03/17 01/03/17 06:59 14:59 22:59 Output Total 1000 ml Balance -1000 ml Result Diagram: 01/03/17 0809 01/02/17 0807 Laboratory Results Laboratory Tests Test 01/03/17 08:09 White Blood Count 8.0 TH/MM3 Red Blood Count 3.11 MIL/MM3 Hemoglobin 9.2 GM/DL Hematocrit 27.6 % Mean Corpuscular Volume 88.8 FL Mean Corpuscular Hemoglobin 29.7 PG Mean Corpuscular Hemoglobin Concent 33.4 % Red Cell Distribution Width 15.4 % Platelet Count 109 TH/MM3 Mean Platelet Volume 12.3 FL CBC Comment AUTO DIFF Culture Results Microbiology Date/Time Source Procedure Growth Status 01/03/17 07:55 Stool Stool Stool Occult Blood (MARILY) Pending Received Administered Medications Medications (Trade) Dose Ordered Sig/Noemi Route PRN Reason Start Time Stop Time Status Last Admin Dose Admin Sodium Chloride (NS Flush) 2 ml BID IV FLUSH 12/31/16 21:00 01/03/17 09:00 Midodrine (Proamatine) 5 mg TID@07,12,17 PO 01/02/17 17:00 01/03/17 06:15 Objective Remarks GENERAL: Pleasant elderly female supine in bed in [facility]. SKIN: Warm and dry. HEAD: Normocephalic. EYES: No injection or drainage. NECK: Supple, trachea midline. CARDIOVASCULAR: Regular rate and rhythm RESPIRATORY: Breath sounds equal bilaterally. No accessory muscle use. GASTROINTESTINAL: Abdomen soft, non-tender, nondistended. EXTREMITIES: No cyanosis NEUROLOGICAL: No obvious focal deficit. Awake, alert, and oriented x3. Assessment/Plan Problem List: (1) MDS (myelodysplastic syndrome) ICD Codes: D46.9 - Myelodysplastic syndrome, unspecified Plan: -- Awaiting bone marrow biopsy results from [facility] in [facility]. -- Circulating blasts seen on peripheral differential. -- She will likely be a candidate for hypo-methylate agent once the diagnosis is confirmed. -- For now he will continue supportive transfusions to maintain hemoglobin greater than 8 g/dL. Hx/Workup: The patient reports an 80 pound weight loss over the past year and half. Earlier this summer she began to notice progressive fatigue and weakness. She was given multiple transfusions for anemia at [facility] [place]. At her last admission in [place] in early November she was evaluated by a glass selector who did a bone marrow biopsy and per the patient the findings were consistent with myelodysplastic syndrome. She underwent GI workup at that time with EGD and colonoscopy that was negative. She was told specifically that she had high risk for developing leukemia and was supposed to follow up when she returned to [place]. She was supposed to see Dr. Crespo in our clinic however had again symptomatic anemia that required admission to hospital. (2) Infiltrating duct carcinoma ICD Codes: C50.919 - Malignant neoplasm of unspecified site of unspecified female breast Plan: -- Patient with a diagnosis of infiltrating ductal carcinoma of the right breast diagnosed in 2016. She is status post lumpectomy and external beam radiation. -- She is presently on adjuvant endocrine therapy with anastrozole. -- Her disease with stage IA-(T1b N0 M0 ER 100% positive, MI 98% positive, HER2/ CIERA Non amplified). Assessment 76-year-old female with history of myelodysplastic syndrome admitted for syncope and hypotension Plan 1. refaxed records request to [facility] in [place] for bone marrow biopsy 2. monitor CBC 3. no transfusion needed at present. Attending Statement feels better after PRBC Denies any new c/o path report reviewed from [place]. She has low grade MDS, FISH for MDS is negative. Cytogenetics are normal 46 XX. I recommend [facility] as outpt. Pt can be d/c to home. FU as outpt. Cherelle Sagastume Jan 03, 2017 10:32 Inder Crespo MD Jan 03, 2017 18:20
[2017-01-03 11:32] LABS: BANDS 1 % (0-6); BLASTS 6 % (0-0); CORRECTED NUCLEATED RBC 9 /100 WBC (0-0); EOSINOPHILS 1 % (0-4); NEUTROPHIL # MANUAL DIFF 3.2 TH/MM3 (1.8-7.7); POLYS (SEG NEUTROPHILS) 39 % (16-70); WBC DIFF SAMPLE 100
[2017-01-03 11:33] LABS: PLATELET ESTIMATE SMEAR LOW (NORMAL); PLATELET MORPHOLOGY NORMAL (NORMAL); SCAN/DIFF FINAL DIFF MANUAL
[2017-01-03 11:47] VITALS: BP 100/60; PULSE 82; RESP 20; TEMP 98.8; O2SAT 96
--- NOTE | 2017-01-03 12:43 | HHI.PR ---
Subjective Remarks Follow-up symptomatic hypotension/MDS and now anemia of chronic disease 01/01/17-patient seen and examined, hemoglobin of 6.8 this morning; patient still feels weak and tired. Denies any bleeding. 01/02/17-patient seen and examined, H&H improved after transfusion of 2 units of blood yesterday. Feels a lot better and stronger today 01/03/17-patient seen and examined, hemoglobin 9.2, BP improving. Patient denies any lightheadedness Objective Vitals Vital Signs Date Time Temp Pulse Resp B/P (MAP) Pulse Ox O2 Delivery O2 Flow Rate FiO2 01/03/17 11:47 98.8 82 20 100/60 (73) 96 01/03/17 07:41 98.3 67 20 90/58 (69) 92 01/03/17 04:00 97.0 74 18 94/54 (67) 95 01/03/17 00:00 98.5 81 18 100/60 (73) 95 01/02/17 20:00 99.5 76 18 95/52 (66) 92 01/02/17 16:00 98.3 81 19 90/46 (61) 96 I/O 01/02/17 01/02/17 01/02/17 01/03/17 01/03/17 01/03/17 07:00 15:00 23:00 07:00 15:00 23:00 Intake Total 1120 ml 900 ml Output Total 1000 ml Balance 1120 ml 900 ml -1000 ml Intake Oral 120 ml IV Total 1000 ml 900 ml Output Urine Total 1000 ml # Bowel Movements 1 Result Diagram: 01/03/1709 01/02/1707 Objective Remarks GENERAL: NAD SKIN: Warm and dry. HEAD: Normocephalic. EYES: No scleral icterus. No injection or drainage. NECK: Supple, trachea midline. No JVD or lymphadenopathy. CARDIOVASCULAR: Regular rate and rhythm with II/ EFFIE RESPIRATORY: Breath sounds equal bilaterally. No accessory muscle use. GASTROINTESTINAL: Abdomen soft, non-tender, nondistended. MUSCULOSKELETAL: No cyanosis, or edema. BACK: Nontender without obvious deformity. No CVA tenderness. A/P Problem List: (1) Symptomatic hypotension ICD Code: I95.89 - Other hypotension (2) Anemia of chronic disease ICD Code: D63.8 - Anemia in other chronic diseases classified elsewhere (3) MDS (myelodysplastic syndrome) ICD Code: D46.9 - Myelodysplastic syndrome, unspecified Assessment and Plan 76-year-old female with Symptomatic hypotension s/p 2 units packed red blood cell 01/01/17 Status post 2 L NS bolus in ED s/p IV fluid NS@84 cc/hr Continue midodrine 5 mg 3 times a day Hold all oral antihypertensive medication MDS Anemia of chronic disease Transfused 2 units packed red blood cell 01/01/17 Continue to monitor H&H Appreciate input from hematology-oncology Awaiting for medical records Hyperlipidemia Continue statin Leukocytosis-resolved Stress reactive Monitor DVT prophylaxis: SCDs PT to treat and lonnyal Jayce Boyer MD Jan 03, 2017 12:43
[2017-01-03 16:12] VITALS: BP 110/58; PULSE 78; RESP 20; TEMP 98.2; O2SAT 96
[2017-01-03 20:00] VITALS: BP 94/48; PULSE 72; RESP 18; TEMP 98.7; O2SAT 94
[2017-01-04] VITALS: BP 108/54; PULSE 78; RESP 18; TEMP 97.1; O2SAT 97
[2017-01-04 04:00] VITALS: BP 94/52; PULSE 69; RESP 18; TEMP 98.7; O2SAT 93
[2017-01-04] MEDS: MIDODRINE 5 MG TAB PO SCH ×2 (07:00→12:21)
[2017-01-04 07:44] VITALS: BP 94/58; PULSE 68; RESP 20; TEMP 98.6; O2SAT 94
[2017-01-04] MEDS: SODIUM CHLORIDE 0.9% FLUSH 10 ML FLUSH IV FLUSH SCH (09:26)
--- NOTE | 2017-01-04 10:47 | PD.ONC.PN ---
Subjective Subjective Remarks Afebrile overnight. Patient resting in bed in [facility]. No complaints. reports she walked with pt yesterday without any dizziness. hoping to go home soon. Objective Data Date Time Temp Pulse Resp B/P (MAP) Pulse Ox O2 Delivery O2 Flow Rate FiO2 01/04/17 07:44 98.6 68 20 94/58 (70) 94 01/04/17 04:00 98.7 69 18 94/52 (66) 93 01/04/17 00:00 97.1 78 18 108/54 (72) 97 01/03/17 20:00 98.7 72 18 94/48 (63) 94 01/03/17 16:12 98.2 78 20 110/58 (75) 96 01/03/17 11:47 98.8 82 20 100/60 (73) 96 01/04/17 01/04/17 01/04/17 07:00 15:00 23:00 Intake Total 120 ml Output Total 200 ml Balance -80 ml Result Diagram: 01/03/17 0809 01/02/17 0807 Laboratory Results Laboratory Tests Test 01/04/17 08:06 Culture Results Microbiology Date/Time Source Procedure Growth Status 01/03/17 07:55 Stool Stool Stool Occult Blood (MARILY) - Final HEMOCCULT NEGATIVE Complete Administered Medications Medications (Trade) Dose Ordered Sig/Noemi Route PRN Reason Start Time Stop Time Status Last Admin Dose Admin Sodium Chloride (NS Flush) 2 ml BID IV FLUSH 12/31/16 21:00 01/04/17 09:26 Midodrine (Proamatine) 5 mg TID@07,12,17 PO 01/02/17 17:00 01/04/17 07:00 Objective Remarks GENERAL: Elderly female sitting up in bed in [facility]. SKIN: Warm and dry. HEAD: Normocephalic. EYES: No injection or drainage. NECK: Supple, trachea midline. CARDIOVASCULAR: Regular rate and rhythm RESPIRATORY: Breath sounds equal bilaterally. No accessory muscle use. GASTROINTESTINAL: Abdomen soft, non-tender, nondistended. EXTREMITIES: No cyanosis NEUROLOGICAL: awake and alert, normal speech. moving all extremities. Assessment/Plan Problem List: (1) MDS (myelodysplastic syndrome) ICD Codes: D46.9 - Myelodysplastic syndrome, unspecified Plan: --bone marrow biopsy shows MDS -- Circulating blasts seen on peripheral differential. -- She will likely be a candidate for hypo-methylate agent once the diagnosis is confirmed. -- For now he will continue supportive transfusions to maintain hemoglobin greater than 8 g/dL. Hx/Workup: The patient reports an 80 pound weight loss over the past year and half. Earlier this summer she began to notice progressive fatigue and weakness. She was given multiple transfusions for anemia at [facility] [place]. At her last admission in [place] in early November she was evaluated by a weigher alloy who did a bone marrow biopsy and per the patient the findings were consistent with myelodysplastic syndrome. She underwent GI workup at that time with EGD and colonoscopy that was negative. She was told specifically that she had high risk for developing leukemia and was supposed to follow up when she returned to [place]. She was supposed to see Dr. Crespo in our clinic however had again symptomatic anemia that required admission to hospital. (2) Infiltrating duct carcinoma ICD Codes: C50.919 - Malignant neoplasm of unspecified site of unspecified female breast Plan: -- Patient with a diagnosis of infiltrating ductal carcinoma of the right breast diagnosed in 2015. She is status post lumpectomy and external beam radiation. -- She is presently on adjuvant endocrine therapy with anastrozole. -- Her disease with stage IA-(T1b N0 M0 ER 100% positive, ME 98% positive, HER2/ CIERA Non amplified). Assessment 76-year-old female with history of myelodysplastic syndrome admitted for syncope and hypotension Plan 1. patient clear for discharge. 2. follow up in clinic by 01/10/17. Attending Statement The exam, history, and the medical decision-making described in the above note were completed with the assistance of the mid-level provider. I reviewed and agree with the findings presented. I attest that I had a lxus-co-ikid encounter with the patient on the same day, and personally performed and documented my assessment and findings in the medical record. Feels better. wants to go home. Mily for d/c appt to see me on tuesday for Vidaza chemo. Cherelle Sagastume Jan 04, 2017 10:47 Inder Crespo MD Jan 04, 2017 16:32
[2017-01-04 11:47] VITALS: BP 100/50; PULSE 78; RESP 20; TEMP 98.4; O2SAT 94
[2017-01-04 12:32] LABS: HEMATOCRIT 27.3 % (35.0-46.0); MEAN CELL VOLUME 88.9 FL (80.0-100.0); MEAN CORPUSCULAR HEMOGLOBIN 29.6 PG (27.0-34.0); MEAN CORPUSCULAR HGB CONC 33.3 % (32.0-36.0); PLATELET COUNT 110 TH/MM3 (150-450); RED BLOOD COUNT 3.07 MIL/MM3 (4.00-5.30); RED CELL DISTRIBUTION WIDTH 15.4 % (11.6-17.2); WHITE BLOOD COUNT 6.1 TH/MM3 (4.0-11.0)
--- NOTE | 2017-01-04 12:33 | HHI.FF ---
Face to Face Verification Diagnosis: (1) MDS (myelodysplastic syndrome) (2) Anemia of chronic disease (3) Hypotension (4) Symptomatic hypotension Physical Therapy Order: Evaluate and Treat Home Health Nursing Order: Signs/symptoms of disease process I have seen patient Barbie Rankin on 01/04/17. My clinical findings support the need for the requested home health care services because: Deconditioned w/ increased weakness I certify that my clinical findings support that this patient is homebound because: Poor cardiac reserve Jayce Boyer MD Jan 04, 2017 12:33
[2017-01-04] MEDS ORDERED: MIDO5TAB PO (12:35)
[2017-01-04 12:37] LABS: HEMO FLAGS AUTO DIFF
[2017-01-04] MEDS ORDERED: WALKER WHEELS/F1 MIS (12:39)
--- NOTE | 2017-01-04 12:40 | HHI.PR ---
Subjective Remarks Follow-up symptomatic hypotension/MDS and now anemia of chronic disease 01/01/17-patient seen and examined, hemoglobin of 6.8 this morning; patient still feels weak and tired. Denies any bleeding. 01/02/17-patient seen and examined, H&H improved after transfusion of 2 units of blood yesterday. Feels a lot better and stronger today 01/03/17-patient seen and examined, hemoglobin 9.2, BP improving. Patient denies any lightheadedness 01/04/17-patient seen and examined, stable and denies any lightheadedness or dizziness. BP still soft Objective Vitals Vital Signs Date Time Temp Pulse Resp B/P (MAP) Pulse Ox O2 Delivery O2 Flow Rate FiO2 01/04/17 11:47 98.4 78 20 100/50 (67) 94 01/04/17 07:44 98.6 68 20 94/58 (70) 94 01/04/17 04:00 98.7 69 18 94/52 (66) 93 01/04/17 00:00 97.1 78 18 108/54 (72) 97 01/03/17 20:00 98.7 72 18 94/48 (63) 94 01/03/17 16:12 98.2 78 20 110/58 (75) 96 I/O 01/03/17 01/03/17 01/03/17 01/04/17 01/04/17 01/04/17 06:59 14:59 22:59 06:59 14:59 22:59 Intake Total 660 ml 120 ml Output Total 1000 ml 200 ml Balance -1000 ml 660 ml -80 ml Intake Oral 660 ml 120 ml Output Urine Total 1000 ml 200 ml # Voids 2 # Bowel Movements 1 1 1 Result Diagram: 01/03/17 0809 01/02/17 0807 Objective Remarks GENERAL: NAD SKIN: Warm and dry. HEAD: Normocephalic. EYES: No scleral icterus. No injection or drainage. NECK: Supple, trachea midline. No JVD or lymphadenopathy. CARDIOVASCULAR: Regular rate and rhythm with II/ EFFIE RESPIRATORY: Breath sounds equal bilaterally. No accessory muscle use. GASTROINTESTINAL: Abdomen soft, non-tender, nondistended. MUSCULOSKELETAL: No cyanosis, or edema. BACK: Nontender without obvious deformity. No CVA tenderness. Procedures none A/P Problem List: (1) Symptomatic hypotension ICD Code: I95.89 - Other hypotension (2) Anemia of chronic disease ICD Code: D63.8 - Anemia in other chronic diseases classified elsewhere (3) MDS (myelodysplastic syndrome) ICD Code: D46.9 - Myelodysplastic syndrome, unspecified Assessment and Plan 76-year-old female with Symptomatic hypotension s/p 2 units packed red blood cell 01/01/17 Status post 2 L NS bolus in ED s/p IV fluid NS@84 cc/hr Continue midodrine 5 mg 3 times a day Hold all oral antihypertensive medication MDS Anemia of chronic disease Transfused 2 units packed red blood cell 01/01/17 Continue to monitor H&H Appreciate input from hematology-oncology Patient to follow outpatient with oncology 01/10/17 Hyperlipidemia Continue statin Leukocytosis-resolved Stress reactive Monitor DVT prophylaxis: SCDs PT to treat and lonnyal Jayce Boyer MD Jan 04, 2017 12:40
--- NOTE | 2017-01-04 12:42 | HHI.DS ---
Discharge Summary Admission Date Dec 31, 2016 at 15:42 Discharge Date: Jan 04, 2017 Admitting Diagnosis hypotension, anemia (1) Symptomatic hypotension ICD Code: I95.89 - Other hypotension (2) Anemia of chronic disease ICD Code: D63.8 - Anemia in other chronic diseases classified elsewhere (3) MDS (myelodysplastic syndrome) ICD Code: D46.9 - Myelodysplastic syndrome, unspecified Procedures none Brief History - From Admission 76-year-old female with a history of breast cancer, hypertension, and recently diagnosed MDS, to the ED for evaluation of worsening lightheadedness, generalized weakness and decreased appetite. Patient was seen today by her PCP with advice to come to the ED for evaluation of hypotension. Patient was found to have BP of 84/43. She denies any GI bleed, hematuria or hemoptysis. Hemoglobin of 8.5, however patient states about a week ago or hemoglobin was over 9. Patient was recently in [place] where she was diagnosed with MDS after multiple workup was done for her anemia, for which she's had multiple blood transfusion. She reports shortness of breath however denies any chest pain. She states, over the past several days she has been feeling tired and more sleepy. Over the past 12 months, patient has lost over 80 pounds. CBC/BMP: 01/03/17 0809 01/02/17 0807 Significant Findings Laboratory Tests Test 01/02/17 08:07 01/03/17 08:09 01/04/17 11:25 Red Blood Count 3.01 MIL/MM3 (4.00-5.30) 3.11 MIL/MM3 (4.00-5.30) 3.07 MIL/MM3 (4.00-5.30) Hemoglobin 8.9 GM/DL (11.6-15.3) 9.2 GM/DL (11.6-15.3) 9.1 GM/DL (11.6-15.3) Hematocrit 26.8 % (35.0-46.0) 27.6 % (35.0-46.0) 27.3 % (35.0-46.0) Platelet Count 104 TH/MM3 (150-450) 109 TH/MM3 (150-450) 110 TH/MM3 (150-450) Mean Platelet Volume 12.0 FL (7.0-11.0) 12.3 FL (7.0-11.0) 12.3 FL (7.0-11.0) Monocytes % 33 % (0-8) 29 % (0-8) Nucleated Red Blood Cells 4 /100 WBC (0-0) 9 /100 WBC (0-0) Blastocytes 8 % (0-0) 6 % (0-0) Platelet Estimate LOW (NORMAL) LOW (NORMAL) Ovalocytes 1+ (NORMAL) Acanthocytes OCC (NORMAL) Creatinine 0.41 MG/DL (0.50-1.00) Total Protein 4.7 GM/DL (6.4-8.2) Calcium Level 7.2 MG/DL (8.5-10.1) Chloride Level 114 MEQ/L (98-107) Anion Gap 4 MEQ/L (5-15) PE at Discharge GENERAL: NAD SKIN: Warm and dry. HEAD: Normocephalic. EYES: No scleral icterus. No injection or drainage. NECK: Supple, trachea midline. No JVD or lymphadenopathy. CARDIOVASCULAR: Regular rate and rhythm with II/ EFFIE RESPIRATORY: Breath sounds equal bilaterally. No accessory muscle use. GASTROINTESTINAL: Abdomen soft, non-tender, nondistended. MUSCULOSKELETAL: No cyanosis, or edema. BACK: Nontender without obvious deformity. No CVA tenderness. Hospital Course Patient admitted secondary to symptomatic hypotension for which she was started initially on IV fluid hydration and all oral antihypertensive medications were held. Due to MDS hematology was consulted. Patient was transfused 2 units of packed red blood cell and her H&H improved. She was started on midodrine 5 mg 3 times a day continue monitoring her BP. DVT and GI prophylaxis were provided. PT was consulted. Prior to discharge, patient's condition improved and vitals remained stable. She will follow with hematology on 01/10/17. Pt Condition on Discharge: Stable Discharge Disposition: Disch w/ Home Health Serv Discharge Time: > 30 minutes Discharge Instructions DIET: Follow Instructions for: Heart Healthy Diet Activities you can perform: Regular-No Restrictions Follow up Referrals: Oncology - 1 Week PCP Follow-up - 1 Week New Medications: Walker with Front Wheels (Walker with Front Wheels) 1 Mis Mis EA .ROUTE DIRECTED, #1 0 Refills Midodrine (Midodrine) 5 Mg Tab 5 MG PO TID@,12,17 for Blood Pressure Management, #90 TAB Jayce Boyer MD Jan 04, 2017 12:42
[2017-01-04 13:33] LABS: BLASTS 10 % (0-0); CORRECTED NUCLEATED RBC 9 /100 WBC (0-0); NEUTROPHIL # MANUAL DIFF 2.1 TH/MM3 (1.8-7.7); POLYS (SEG NEUTROPHILS) 35 % (16-70); WBC DIFF SAMPLE 100
[2017-01-04 13:36] LABS: PLATELET ESTIMATE SMEAR LOW (NORMAL)
[2017-01-04 13:37] LABS: PLATELET MORPHOLOGY ENLARGED (NORMAL)
[2017-01-04 13:38] LABS: ACANTHOCYTES OCC (NORMAL)
[2017-01-04 13:39] LABS: OVALOCYTES 1+ (NORMAL); SCAN/DIFF FINAL DIFF MANUAL
== END 2017-01-04 13:46 | disposition home health service (06) | DRG 812 ==
LOC: NEPE 13:17 → NEDA 15:42 → OBSVTOIN 15:42 → N05B 18:12
PROVIDERS: ADMIT Hospitalist; ATTEND Hospitalist
PROC: 30233N1 Transfusion of Nonautologous Red Blood Cells into Peripheral Vein, Percutaneous Approach (ICD-10-PCS; principal; 2017-01-01)
DX: D46.9 Myelodysplastic syndrome, unspecified (principal); I95.9 Hypotension, unspecified; D69.6 Thrombocytopenia, unspecified; C50.911 Malignant neoplasm of unspecified site of right female breast; D63.8 Anemia in other chronic diseases classified elsewhere; I10 Essential (primary) hypertension; E78.5 Hyperlipidemia, unspecified; F17.210 Nicotine dependence, cigarettes, uncomplicated; J45.909 Unspecified asthma, uncomplicated; R63.4 Abnormal weight loss; R53.1 Weakness; Z92.3 Personal history of irradiation; Z23 Encounter for immunization; Z17.0 Estrogen receptor positive status [ER+]
CPT/HCPCS: 36430; 80048; 80053; 81001; 82272; 84155; 85007; 85027; 85610; 86850; 86900; 86901; 86920; 90471; 90686; 93005; 96360; G0008; J1940; J7030; J7050; P9016; Q2038

== ENCOUNTER 2017-02-21 06:05 | Day surgery (SDC) | payer OTHER ==
[2017-02-21] VITALS (12 sets, daily range): BP systolic 71–137; BP diastolic 35–67; PULSE 76–93; RESP 16–20; TEMP 97.7–99; O2SAT 92–99
[~2017-02-21] VITALS: Ht 157.5 cm; Wt 56.4 kg
[~2017-02-21 06:05] MED LIST: MIDO5TAB PO
[2017-02-21] MEDS ORDERED: FURO20TA PO (06:43)
[2017-02-21] MEDS ORDERED: MIRTA15 PO (06:43)
[2017-02-21] MEDS ORDERED: TAMO20TA6 PO (06:43)
[2017-02-21] MEDS ORDERED: CHLORHEXIDINE GLUCONATE 2 % 1 PACK (2 CLOTHS) TOPICAL SCH (07:00)
[2017-02-21] MEDS ORDERED: SODIUM CHLORIDE 0.9% 1000 ML IV SCH (07:00)
[2017-02-21] MEDS ORDERED: VANCOMYCIN 1000 MG/NS 250 ML - implanted port/tunneled catheter IV SCH ×2 (07:00)
[2017-02-21] MEDS ORDERED: POVIDONE IODINE 5% (ANTISEPSIS KIT) 4 APPLICATIONS EACH NARE SCH (07:00)
[2017-02-21 07:45] LABS: APTT (PATIENT) 26.1 SEC (24.3-30.1); INTERNATIONAL NORMALIZED RATIO 1.1 RATIO
[2017-02-21] MEDS ORDERED: MIDAZOLAM HCL 2 MG/2 ML VIAL ONE (07:59)
[2017-02-21] MEDS ORDERED: LIDOCAINE 1%/EPINEPHrine 1:100,000 SOLN 20 ML VIAL ONE (08:10)
--- NOTE | 2017-02-21 08:55 | PD.RAD ---
Post Procedure Progress Note Pre Procedure Diagnosis: (1) MDS (myelodysplastic syndrome) Post Procedure Diagnosis: (1) MDS (myelodysplastic syndrome) Procedure Date: Feb 21, 2017 Supervising Radiologist: Bartolome Galindo Estimated blood loss: 3cc Anesthesia: Local, Conscious Sedation Plan of Activity Patient to Unit: ROPU Patient Condition: Good Additional Comments: Port placed via the right IJ. catheter in good position OK for use. Full dictated report to follow See PACS Report for procedural detail/treatment Bartolome Galindo MD Feb 21, 2017 08:55
[2017-02-21] MEDS ORDERED: SODIUM CHLORIDE 0.9% FLUSH 10 ML FLUSH IVF PRN (09:00)
[2017-02-21 09:32] LABS: MEAN CELL VOLUME 87.8 FL (80.0-100.0); MEAN CORPUSCULAR HEMOGLOBIN 29.2 PG (27.0-34.0); MEAN CORPUSCULAR HGB CONC 33.3 % (32.0-36.0); PLATELET COUNT 91 TH/MM3 (150-450); RED BLOOD COUNT 1.89 MIL/MM3 (4.00-5.30); RED CELL DISTRIBUTION WIDTH 16.3 % (11.6-17.2); WHITE BLOOD COUNT 8.3 TH/MM3 (4.0-11.0)
[2017-02-21 09:37] LABS: HEMO FLAGS AUTO DIFF
[2017-02-21 09:41] LABS: HEMATOCRIT 16.5 % (35.0-46.0)
[2017-02-21] MEDS ORDERED: SODIUM CHLOR 0.9% 250 ML INJ 250 ML IV ONE (10:00)
[2017-02-21] MEDS ORDERED: FUROSEMIDE 20 MG/2 ML VIAL IV PUSH ONE (10:00)
[2017-02-21] MEDS ORDERED: ACETAMINOPHEN 325 MG TAB PO PRN (10:00)
[2017-02-21] MEDS ORDERED: diphenhydrAMINE HCL 25 MG CAP PO PRN (10:00)
[2017-02-21 10:48] LABS: BASOPHILS 1 % (0-2); BLASTS 1 % (0-0); CORRECTED NUCLEATED RBC 6 /100 WBC (0-0); NEUTROPHIL # MANUAL DIFF 4.5 TH/MM3 (1.8-7.7); PLATELET ESTIMATE SMEAR LOW (NORMAL); PLATELET MORPHOLOGY ENLARGED (NORMAL); POLYS (SEG NEUTROPHILS) 54 % (16-70); SCAN/DIFF AUTO DIFF CONFIRMED; WBC DIFF SAMPLE 100
--- NOTE | 2017-02-21 15:48 | RADRPT ---
EXAM DATE/TIME: 02/21/2017 09:08 [facility] COMPARISON: No previous studies available for comparison. INDICATIONS : Patient with history of right breast cancer in need of [id number] placement. MEDICAL HISTORY : HTN, Anemia, GERD, Osteoporosis, Myelodysplastic syndrome, HLD SURGICAL HISTORY : Breast biopsy, Right lumpectomy and sentinel lymph node sampling, Bone marrow biopsy ENCOUNTER: Initial ACUITY: >1 year PAIN SCORE: 0/10 FLUORO TIME: 0.4 minutes IMAGE SERIES: 1 SEDATION TIME: 30 minutes ACCESS: Right internal jugular vein SEDATION: 1.) 2 mg midazolam (Versed) IV 2.) 100 mcg fentanyl (Sublimaze) IV Prophylactic antibiotics were administered with appropriate pre-procedure timing. Vancomycin within 2 hours of procedure, Ancef (or alternative) within 1 hour of procedure. DEVICE: 1. 8 Israeli single lumen Smart power port with vortex PROCEDURE : 1. Continuous pulse oximetry and EKG monitoring. 2. Intravenous conscious sedation. 3. Ultrasound guidance for venous access. 4. Fluoroscopic guided implantable central venous port placement. The patient was placed supine. The neck was prepped in sterile fashion. Full sterile technique was u sed, including cap, mask, sterile gloves and gown, and a large sterile sheet. Hand hygiene and 2% ch lorhexidine Betadine was utilized per protocol for cutaneous antisepsis with appropriate dry time for site. Sterile gel and sterile probe cover were utilized for ultrasound guidance. The skin and sub cutaneous tissues were infiltrated with local anesthetic solution. Under direct ultrasound guidance, the right internal jugular vein was accessed. The ultrasound image s depicting access guidance were stored and saved to PACS for permanent record. A subcutaneous pocke t was created using blunt dissection. The port was introduced to the pocket. The catheter tubing wa s fed through a subcutaneous tunnel to the venotomy site. The catheter tubing was cut to a suitable length and then was introduced through a valved Peel-Away sheath and positioned with catheter tubing tip at the cavo-atrial junction level. The pocket incision was closed with subcuticular Vicryl sutur e. Steri-Strips were applied. The port was flushed and locked with heparin solution per protocol. Sterile dressing was applied to the site. The patient tolerated the procedure well. Conscious sedation was performed with the prescribed dosages and duration as above in the presence of an independent trained radiology nurse to assist in the monitoring of the patient. EKG and oximetry remained stable throughout the procedure. The patient tolerated the procedure well and there were no complications. The patient was sent to post anesthesia recovery in stable condition. CONCLUSION: Uncomplicated ultrasound and fluoroscopic guided implanted central venous port catheter placement as described in detail above. An 8 Israeli Power port was placed. Bartolome Galindo MD on February 21, 2017 at 15:46 Board Certified Radiologist. This report was verified electronically.
== END 2017-02-21 16:00 | disposition home or self-care (01) ==
LOC: HROP 06:05 → HRIP 06:13 → HROP 16:00
PROVIDERS: ATTEND Internal Medicine Hematology & Oncology
DX: Z45.2 Encounter for adjustment and management of vascular access device (principal); D46.9 Myelodysplastic syndrome, unspecified; C50.911 Malignant neoplasm of unspecified site of right female breast; I10 Essential (primary) hypertension; E78.5 Hyperlipidemia, unspecified
CPT/HCPCS: 36430; 36561; 76937; 77001; 85025; 85610; 85730; 86850; 86900; 86901; 86920; 99152; 99153; C1788; J1642; J1940; J2250; J3010; J3370; J7030; J7050; P9016

== ENCOUNTER 2017-04-01 15:39 | Observation (INO) | payer OTHER ==
[2017-04-01] VITALS (7 sets, daily range): BP systolic 96–127; BP diastolic 48–65; PULSE 76–96; RESP 17–20; TEMP 98–98.8; O2SAT 96–98
[~2017-04-01] VITALS: Ht 157.5 cm; Wt 54.5 kg
[~2017-04-01 15:39] MED LIST changes: +FURO20TA PO; +MIRTA15 PO; +TAMO20TA6 PO
[2017-04-01 17:09] LABS: INTERNATIONAL NORMALIZED RATIO 1.2 RATIO; PROTHROMBIN TIME - PATIENT 11.7 SEC (9.8-11.6)
[2017-04-01 17:10] LABS: AUTOMATED NEUTROPHIL # 1.6 TH/MM3 (1.8-7.7); BASOPHIL % 1.2 % (0.0-2.0); EOSINOPHIL % 0.2 % (0.0-4.0); LYMPH % 19.8 % (9.0-44.0); LYMPHOCYTE # 0.7 TH/MM3 (1.0-4.8); MEAN CELL VOLUME 85.5 FL (80.0-100.0); MEAN CORPUSCULAR HEMOGLOBIN 29.6 PG (27.0-34.0); MEAN CORPUSCULAR HGB CONC 34.6 % (32.0-36.0); MEAN PLATELET VOLUME 11.8 FL (7.0-11.0); MONO % 32.5 % (0.0-8.0); MONOCYTE # 1.1 TH/MM3 (0-0.9); NEUT % 46.3 % (16.0-70.0); PLATELET COUNT 53 TH/MM3 (150-450); RED BLOOD COUNT 2.04 MIL/MM3 (4.00-5.30); RED CELL DISTRIBUTION WIDTH 16.2 % (11.6-17.2); WHITE BLOOD COUNT 3.5 TH/MM3 (4.0-11.0)
--- NOTE | 2017-04-01 17:13 | PD ---
HPI Chief Complaint: Abnormal Results Time Seen by Provider: 16:08 Travel History International Travel<30 days: No Contact w/Intl Traveler<30days: No Traveled to known affect area: No History of Present Illness HPI 76 yo female here for low hemoglobin. 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 Per patient and she has been anemic and required transfusion about once a month. She is currently on chemotherapy to see if they can restart the bone marrow, but so far still having the same issue. Feels tired, weak and has SOB with excertion. no fevers, chills or sweats. Denies any changes in stool. She states that she follows with Dr. Conklin who told her to come here today. Per patient the blood work was done on Tuesday and they a little bit upset that the nurse did not contact them until today and told to come to the ED instead of going to his office. Patient denies any other medical issues. No chest pain. No urinary or bowel movement issues. Allergy to penicillin. PFSH Past Medical History Anemia: Yes Asthma: No Autoimmune Disease: No Heart Rhythm Problems: No Cancer: Yes (breast) Cardiovascular Problems: Yes High Cholesterol: No Chemotherapy: Yes Chest Pain: No Congestive Heart Failure: No COPD: No Diabetes: No Endocrine: No Genitourinary: No Hepatitis: No Hypertension: Yes Immune Disorder: No Musculoskeletal: No Neurologic: No Psychiatric: No Reproductive: No Respiratory: Yes Radiation Therapy: Yes Sleep Apnea: No Thyroid Disease: No Tetanus Vaccination: < 5 Years Past Surgical History Abdominal Surgery: Yes (gallbladder removal) AICD: No Cardiac Surgery: No Cholecystectomy: Yes Ear Surgery: No Endocrine Surgery: No Eye Surgery: Yes (cataract removal) Genitourinary Surgery: No Gynecologic Surgery: Yes (hysterectomy) Hysterectomy: Yes Joint Replacement: No Oral Surgery: Yes (tonsillectomy) Pacemaker: No Thoracic Surgery: No Tonsillectomy: Yes Other Surgery: Yes (RIGHT LUMPECTOMY) Social History Alcohol Use: No Tobacco Use: Yes Substance Use: No Allergies-Medications (Allergen,Severity, Reaction): Coded Allergies: penicillin G (Verified Allergy, Severe, SWELLING, RASH, 04/01/17) Reported Meds & Prescriptions Reported Meds & Active Scripts Active Midodrine 5 Mg Tab 5 Mg PO TID@,,17 Reported Furosemide 20 Mg Tab 20 Mg PO DAILY Mirtazapine 15 Mg Tab 15 Mg PO HS Tamoxifen (Tamoxifen Citrate) 20 Mg Tab 20 Mg PO DAILY Review of Systems Except as stated in HPI: all other systems reviewed are Neg Physical Exam Narrative GENERAL: SKIN: Warm and dry. HEAD: Atraumatic. Normocephalic. EYES: Pupils equal and round. No scleral icterus. No injection or drainage. ENT: No nasal bleeding or discharge. Mucous membranes pink and moist. Tongue is midline. No uvula deviation. NECK: Trachea midline. No JVD. CARDIOVASCULAR: Regular rate and rhythm. No murmurs, S3, S4. RESPIRATORY: No accessory muscle use. Clear to auscultation. Breath sounds equal bilaterally. GASTROINTESTINAL: Abdomen soft, non-tender, nondistended. Hepatic and splenic margins not palpable. MUSCULOSKELETAL: Extremities without clubbing, cyanosis, or edema. No obvious deformities. Full range of motion of the upper and lower extremities bilaterally. 2+ pulses bilaterally. NEUROLOGICAL: Awake and alert. No obvious cranial nerve deficits. Motor grossly within normal limits. Five out of 5 muscle strength in the arms and legs. Normal speech. PSYCHIATRIC: Appropriate mood and affect; insight and judgment normal. Data Data Last Documented VS Vital Signs Date Time Temp Pulse Resp B/P (MAP) Pulse Ox O2 Delivery O2 Flow Rate FiO2 04/01/17 16:22 84 18 105/52 (69) 98 Room Air 04/01/17 15:41 98.3 Orders Orders Complete Blood Count With Diff (04/01/17 16:07) Comprehensive Metabolic Panel (04/01/17 16:07) Prothrombin Time / Inr (Pt) (04/01/17 16:07) Act Partial Throm Time (Ptt) (04/01/17 16:07) Iv Access Insert/Monitor (04/01/17 16:07) Ecg Monitoring (04/01/17 16:07) Oximetry (04/01/17 16:07) Type And Screen (04/01/17 16:07) Red Blood Cells (Rbc) (04/01/17 16:07) Admit Order (Ed Use Only) (04/01/17 18:04) Labs Laboratory Tests Test 04/01/17 16:45 White Blood Count 3.5 TH/MM3 Red Blood Count 2.04 MIL/MM3 Hemoglobin 6.0 GM/DL Hematocrit 17.5 % Mean Corpuscular Volume 85.5 FL Mean Corpuscular Hemoglobin 29.6 PG Mean Corpuscular Hemoglobin Concent 34.6 % Red Cell Distribution Width 16.2 % Platelet Count 53 TH/MM3 Mean Platelet Volume 11.8 FL Neutrophils (%) (Auto) 46.3 % Lymphocytes (%) (Auto) 19.8 % Monocytes (%) (Auto) 32.5 % Eosinophils (%) (Auto) 0.2 % Basophils (%) (Auto) 1.2 % Neutrophils # (Auto) 1.6 TH/MM3 Lymphocytes # (Auto) 0.7 TH/MM3 Monocytes # (Auto) 1.1 TH/MM3 Eosinophils # (Auto) 0.0 TH/MM3 Basophils # (Auto) 0.0 TH/MM3 CBC Comment AUTO DIFF Differential Total Cells Counted 100 Neutrophils % (Manual) 65 % Lymphocytes % 20 % Monocytes % 14 % Basophils % 1 % Neutrophils # (Manual) 2.3 TH/MM3 Nucleated Red Blood Cells 27 /100 WBC Differential Comment FINAL DIFF MANUAL Platelet Estimate LOW Platelet Morphology Comment ENLARGED Target Cells 1+ Ovalocytes 1+ Isamar Cells 1+ Keratocytes OCC Prothrombin Time 11.7 SEC Prothromb Time International Ratio 1.2 RATIO Activated Partial Thromboplast Time 24.5 SEC Blood Urea Nitrogen 18 MG/DL Creatinine 0.58 MG/DL Random Glucose 95 MG/DL Total Protein 5.4 GM/DL Albumin 3.0 GM/DL Calcium Level 7.7 MG/DL Alkaline Phosphatase 53 U/L Aspartate Amino Transf (AST/SGOT) 13 U/L Alanine Aminotransferase (ALT/SGPT) 8 U/L Total Bilirubin 0.7 MG/DL Sodium Level 144 MEQ/L Potassium Level 3.5 MEQ/L Chloride Level 110 MEQ/L Carbon Dioxide Level 28.6 MEQ/L Anion Gap 5 MEQ/L Estimat Glomerular Filtration Rate 101 ML/MIN MDM Medical Decision Making Medical Screen Exam Complete: Yes Emergency Medical Condition: Yes Medical Record Reviewed: Yes Interpretation(s) CBC & BMP Diagram 04/01/17 16:45 Total Protein 5.4 L, Albumin 3.0 L, Calcium Level 7.7 L, Alkaline Phosphatase 53 , Aspartate Amino Transf (AST/SGOT) 13 L, Alanine Aminotransferase (ALT/SGPT) 8 L, Total Bilirubin 0.7 Differential Diagnosis Anemia versus symptomatic anemia versus needing transfusion versus the hydration Narrative Course 76-year-old female that presents to the ED for evaluation of symptom like anemia. Patient was properly examined and was found to have signs and symptoms consistent with appears to be symptomatic anemia. Patient had blood work done at this facility and I was able to review and patient did have a 6.3 hemoglobin. She was sent here for likely transfusion. Labs ordered. Blood was ordered. Labs and imaging show symptomatically anemia. Patient was started on blood. Patient will be admitted for transfusion as well as further monitoring. Patient agrees with this plan. Case discussed with Dr. Laguna who Agrees to admission. Diagnosis Primary Impression: Symptomatic anemia Admitting Information Admitting Physician Requests: Observation Matt Cervantes Apr 01, 2017 17:13
[2017-04-01 17:18] LABS: HEMATOCRIT 17.5 % (35.0-46.0)
[2017-04-01 17:31] LABS: ALT (GPT) 8 U/L (10-53); AST (GOT) 13 U/L (15-37); BICARBONATE 28.6 MEQ/L (21.0-32.0); BLOOD UREA NITROGEN 18 MG/DL (7-18); CALCIUM 7.7 MG/DL (8.5-10.1); CHLORIDE 110 MEQ/L (98-107); CREATININE 0.58 MG/DL (0.50-1.00); GLOMERULAR FILTRATION RATE 101 ML/MIN (>89); GLUCOSE,RANDOM 95 MG/DL (74-106); SODIUM (NA) 144 MEQ/L (136-145)
[2017-04-01 17:32] LABS: ALKALINE PHOSPHATASE 53 U/L (45-117); TOTAL BILIRUBIN ADULT 0.7 MG/DL (0.2-1.0); TOTAL PROTEIN 5.4 GM/DL (6.4-8.2)
[2017-04-01 18:00] LABS: BASOPHILS 1 % (0-2); CORRECTED NUCLEATED RBC 27 /100 WBC (0-0); LYMPHOCYTES 20 % (9-44); MONOCYTES 14 % (0-8); NEUTROPHIL # MANUAL DIFF 2.3 TH/MM3 (1.8-7.7); NUCLEATED RED BLOOD CELL 27 (0-0); POLYS (SEG NEUTROPHILS) 65 % (16-70)
[2017-04-01 18:03] LABS: KERATOCYTES OCC (NORMAL); OVALOCYTES 1+ (NORMAL)
[2017-04-01 18:04] LABS: BURR CELLS 1+ (NORMAL)
[2017-04-01 18:05] LABS: TARGET CELLS 1+ (NORMAL)
[2017-04-01] MEDS ORDERED: ACETAMINOPHEN 325 MG TAB PO PRN ×3 (18:30)
[2017-04-01] MEDS ORDERED: diphenhydrAMINE HCL 25 MG CAP PO PRN (18:30)
[2017-04-01] MEDS ORDERED: oxyCODONE/ACETAMINOPHEN 5 MG/325 MG TAB PO PRN (18:30)
[2017-04-01] MEDS ORDERED: SENNOSIDES 8.6 MG TAB PO PRN (18:30)
[2017-04-01] MEDS ORDERED: MORPHINE SULFATE 2 MG/ML INJ IV PUSH PRN ×3 (18:30)
[2017-04-01] MEDS ORDERED: TEMAZEPAM 15 MG CAP PO PRN (18:30)
[2017-04-01] MEDS ORDERED: BISACODYL 10 MG SUPP RECTAL PRN (18:30)
[2017-04-01] MEDS ORDERED: MAGNESIUM HYDROXIDE SUSP 30 ML CUP PO PRN (18:30)
[2017-04-01] MEDS ORDERED: ONDANSETRON HCL 4 MG/2 ML VIAL IVP PRN (18:30)
[2017-04-01] MEDS ORDERED: SODIUM CHLORIDE 0.9% FLUSH 10 ML FLUSH IV FLUSH PRN (18:30)
[2017-04-01] MEDS ORDERED: oxyCODONE/ACETAMINOPHEN 10 MG/325 MG TAB PO PRN (18:30)
[2017-04-01] MEDS ORDERED: LACTULOSE SYRUP 20 GM/30 ML CUP PO PRN (18:30)
[2017-04-01] MEDS ORDERED: NALOXONE HCL 0.4 MG/ML AMP IV PUSH PRN (18:30)
[2017-04-01] MEDS ORDERED: METOCLOPRAMIDE HCL 10 MG/2 ML VIAL IV PUSH PRN (18:30)
[2017-04-01] MEDS ORDERED: RESP: ALBUTEROL 2.5 MG/IPRATROPIUM 0.5 MG NEB (PRN) NEB (18:30)
[2017-04-01] MEDS ORDERED: FUROSEMIDE 20 MG/2 ML VIAL IV PUSH ONE (18:45)
[2017-04-01] MEDS ORDERED: SODIUM CHLOR 0.9% 250 ML INJ 250 ML IV ONE (19:00)
--- NOTE | 2017-04-01 19:00 | HHI.HP ---
[facility] Raza Zuluaga M.D. Admission Diagnosis symptomatic anemia Diagnoses: Chief Complaint: ABNormal lab results low hemoglobin Travel History International Travel<30 Days: No Contact w/Intl Traveler <30 Da: No Traveled to Known Affected Are: No History of Present Illness Patient is a 76-year-old female, That was called from her oncologist's office to come for a blood transfusion due to having a low hemoglobin of 6. Patient has a history of demyelinating disease causing her to be chronically anemic. The patient states that she has been anemic and required transfusion about once a month or so. Currently on chemotherapy to see if they can restart the bone marrow. Unfortunately It has not helped yet. Vision feels tired and weak and has had some shortness breath with exertion no fevers no chills or sweats denies any changes in her stools follows up with with Dr. FALLON told her to come to the emergency department today. Patient states she had the blood work done on Tuesday and was told to come to the emergency department today for blood transfusion. Patient is an active smoker and smokes still smokes daily Will be placed in observation for 2 units of packed red blood cells blood transfusion Review of Systems Constitutional: COMPLAINS OF: Fatigue, Weight loss, Change in appetite, DENIES : Diaphoretic episodes, Fever, Weight gain, Chills, Dizziness, Night Sweats Endocrine: DENIES: Abnorml menstrual pattern, Heat/cold intolerance, Polydipsia , Polyuria, Polyphagia Eyes: DENIES: Blurred vision, Diplopia, Eye inflammation, Eye pain, Vision loss , Photosensitivity Ears, nose, mouth, throat: DENIES: Tinnitus, Hearing loss, Vertigo, Nasal discharge, Oral lesions Respiratory: COMPLAINS OF: Cough, Shortness of breath, DENIES: Apneas, Snoring , Wheezing, Hemoptysis, Sputum production Cardiovascular: COMPLAINS OF: Lower Extremity Edema, DENIES: Chest pain, Palpitations, Syncope, Dyspnea on Exertion, PND Gastrointestinal: DENIES: Abdominal pain, Black stools, Bloody stools, Constipation Musculoskeletal: DENIES: Joint pain, Muscle aches, Stiffness, Joint Swelling Integumentary: DENIES: Abnormal pigmentation, Pruritus, Nail changes Hematologic/lymphatic: DENIES: Bruising, Lymphadenopathy Immunologic/allergic: DENIES: Eczema, Urticaria Neurologic: DENIES: Abnormal gait, Headache, Localized weakness, Paresthesias, Seizures, Speech Problems Psychiatric: COMPLAINS OF: Anxiety, DENIES: Confusion, Mood changes, Depression , Hallucinations, Agitation, Delusions Except as stated in HPI: all other systems reviewed are Neg Past Family Social History Past Medical History Chronic anemia Breast cancer Thrombocytopenia Symptomatic anemia Hypertension History of radiation therapy Tobacco abuse Past Surgical History Cholecystectomy Bilateral cataract surgery Hysterectomy Tonsillectomy Right lumpectomy Right-sided port Reported Medications Reported Meds & Active Scripts Active Midodrine 5 Mg Tab 5 Mg PO TID@07,12,17 Reported Furosemide 20 Mg Tab 20 Mg PO DAILY Mirtazapine 15 Mg Tab 15 Mg PO HS Tamoxifen (Tamoxifen Citrate) 20 Mg Tab 20 Mg PO DAILY Allergies: Coded Allergies: penicillin G (Verified Allergy, Severe, SWELLING, RASH, 04/01/17) Active Ordered Medications Current Medications Sodium Chloride (NS Flush) 2 ml UNSCH PRN IV FLUSH FLUSH AFTER USING IV ACCESS ; Start 04/01/17 at 18:30 Sodium Chloride (NS Flush) 2 ml BID IV FLUSH ; Start 04/01/17 at 21:00 Acetaminophen (Tylenol) 650 mg Q4H PRN PO TEMP > 100.4; Start 04/01/17 at 18:30 Ondansetron HCl (Zofran Inj) 4 mg Q6H PRN IVP NAUSEA OR VOMITING; Start at 18:30 Metoclopramide HCl (Reglan Inj) 5 mg Q6H PRN IV PUSH NAUSEA OR VOMITING; Start 04/01/17 at 18:30 Temazepam (Restoril) 15 mg HS PRN PO INSOMNIA; Start 04/01/17 at 18:30 Acetaminophen (Tylenol) 650 mg Q6H PRN PO PAIN SCALE 1 TO 2; Start 04/01/17 at 18:30 Oxycodone/ Acetaminophen (Percocet 5-325 Mg) 1 tab Q6H PRN PO PAIN SCALE 3 TO 5; Start 04/01/17 at 18:30 Oxycodone/ Acetaminophen (Percocet 10-325 Mg) 1 tab Q6H PRN PO PAIN SCALE 6 TO 10; Start 04/01/17 at 18:30 Morphine Sulfate (Morphine Inj) 2 mg Q3H PRN IV PUSH Pain 3-5; if unable to take PO; Start 04/01/17 at 18:30 Morphine Sulfate (Morphine Inj) 4 mg Q3H PRN IV PUSH Pain 6-10;if unable to take PO; Start 04/01/17 at 18:30 Morphine Sulfate (Morphine Inj) 4 mg Q3H PRN IV PUSH BREAKTHROUGH PAIN; Start 04/01/17 at 18:30 Naloxone HCl (Narcan Inj) 0.4 mg UNSCH PRN IV PUSH SEE LABEL COMMENTS; Start at 18:30 Senna/Docusate Sodium (Mildred-Colace) 1 tab BID PO ; Start 04/01/17 at 21:00 Magnesium Hydroxide (Milk Of Magnesia Liq) 30 ml Q12H PRN PO Mild constipation ; Start 04/01/17 at 18:30 Sennosides (Senokot) 17.2 mg Q12H PRN PO Moderate constipation; Start 04/01/17 at 18:30 Bisacodyl (Dulcolax Supp) 10 mg DAILY PRN RECTAL SEVERE CONSITIPATION; Start at 18:30 Lactulose (Lactulose Liq) 30 ml DAILY PRN PO SEVERE CONSITIPATION; Start at 18:30 Sodium Chloride 250 ml @ 15 mls/hr ONCE ONCE IV ; Start 04/01/17 at 19:00; Stop 04/02/17 at 11:39 Acetaminophen (Tylenol) 650 mg Q4H PRN PO SEE LABEL COMMENTS; Start 04/01/17 at 18:30 Diphenhydramine HCl (Benadryl) 25 mg Q4H PRN PO SEE LABEL COMMENTS; Start at 18:30 Furosemide (Lasix Inj) 20 mg ONCE ONCE IV PUSH ; Start 04/01/17 at 18:45; Stop 04/01/17 at 18:46; Status DC Furosemide (Lasix) 20 mg DAILY PO ; Start 04/02/17 at 09:00 Midodrine (Proamatine) 5 mg TID@07,12,17 PO ; Start 04/02/17 at 07:00 Mirtazapine (Remeron) 15 mg HS PO ; Start 04/01/17 at 21:00 Tamoxifen Citrate (Nolvadex) 20 mg DAILY PO ; Start 04/02/17 at 09:00 Guaifenesin (Mucinex Er) 600 mg BID PO ; Start 04/01/17 at 21:00; Status UNV Albuterol/ Ipratropium (Duoneb Neb) 1 ampule Q4HR NEB PRN NEB SHORTNESS OF BREATH; Start 04/01/17 at 18:30; Status UNV Family History Tobacco abuse Breast cancer Social History Smokes daily Denies any alcohol or illicits Physical Exam Vital Signs Vital Signs Date Time Temp Pulse Resp B/P (MAP) Pulse Ox O2 Delivery O2 Flow Rate FiO2 04/01/17 16:22 84 18 105/52 (69) 98 Room Air 04/01/17 16:22 83 18 98 Room Air 04/01/17 16:22 84 18 98 Room Air 04/01/17 15:41 98.3 96 20 127/58 (81) 98 Room Air Physical Exam GENERAL: This is a well-nourished, well-developed patient, in no apparent distress. SKIN: No rashes, ecchymoses or lesions. Cool and dry. HEAD: Atraumatic. Normocephalic. No temporal or scalp tenderness. EYES: Pupils equal round and reactive. Extraocular motions intact. No scleral icterus. No injection or drainage. ENT: Nose without bleeding, purulent drainage or septal hematoma. Throat without erythema, tonsillar hypertrophy or exudate. Uvula midline. Airway patent. NECK: Trachea midline. No JVD or lymphadenopathy. Supple, nontender, no meningeal signs. CARDIOVASCULAR: Regular rate and rhythm without murmurs, gallops, or rubs. RESPIRATORY: Clear to auscultation. Coarse breath sounds Breath sounds equal bilaterally. No wheezes, rales, scattered rhonchi. Right-sided port GASTROINTESTINAL: Abdomen soft, non-tender, nondistended. No hepato-splenomegaly , or palpable masses. No guarding. MUSCULOSKELETAL: Extremities without clubbing, cyanosis, +1-2 lower extremity edema. No joint tenderness, effusion, or edema noted. No calf tenderness. Negative Homans sign bilaterally. NEUROLOGICAL: Awake and alert. Cranial nerves II through XII intact. Motor and sensory grossly within normal limits. Five out of 5 muscle strength in all muscle groups. Normal speech. Insight and judgment is good Mood and behaviors appropriate Laboratory Laboratory Tests Test 04/01/17 16:45 White Blood Count 3.5 Red Blood Count 2.04 Hemoglobin 6.0 Hematocrit 17.5 Mean Corpuscular Volume 85.5 Mean Corpuscular Hemoglobin 29.6 Mean Corpuscular Hemoglobin Concent 34.6 Red Cell Distribution Width 16.2 Platelet Count 53 Mean Platelet Volume 11.8 Neutrophils (%) (Auto) 46.3 Lymphocytes (%) (Auto) 19.8 Monocytes (%) (Auto) 32.5 Eosinophils (%) (Auto) 0.2 Basophils (%) (Auto) 1.2 Neutrophils # (Auto) 1.6 Lymphocytes # (Auto) 0.7 Monocytes # (Auto) 1.1 Eosinophils # (Auto) 0.0 Basophils # (Auto) 0.0 CBC Comment AUTO DIFF Differential Total Cells Counted 100 Neutrophils % (Manual) 65 Lymphocytes % 20 Monocytes % 14 Basophils % 1 Neutrophils # (Manual) 2.3 Nucleated Red Blood Cells 27 Differential Comment FINAL DIFF MANUAL Platelet Estimate LOW Platelet Morphology Comment ENLARGED Target Cells 1+ Ovalocytes 1+ Stehekin Cells 1+ Keratocytes OCC Prothrombin Time 11.7 Prothromb Time International Ratio 1.2 Activated Partial Thromboplast Time 24.5 Blood Urea Nitrogen 18 Creatinine 0.58 Random Glucose 95 Total Protein 5.4 Albumin 3.0 Calcium Level 7.7 Alkaline Phosphatase 53 Aspartate Amino Transf (AST/SGOT) 13 Alanine Aminotransferase (ALT/SGPT) 8 Total Bilirubin 0.7 Sodium Level 144 Potassium Level 3.5 Chloride Level 110 Carbon Dioxide Level 28.6 Anion Gap 5 Estimat Glomerular Filtration Rate 101 Result Diagram: 04/01/17 1645 04/01/17 1645 Caprini VTE Risk Assessment Caprini VTE Risk Assessment: No/Low Risk (score <= 1) Caprini Risk Assessment Model Point Value = 1 Point Value = 2 Point Value = 3 Point Value = 5 Age 41-60 Minor surgery BMI > 25 kg/m2 Swollen legs Varicose veins or History of unexplained or recurrent spontaneous Oral contraceptives or hormone replacement Sepsis (< 1 month) Serious lung disease, including pneumonia (< 1 month) Abnormal pulmonary function Acute myocardial infarction Congestive heart failure (< 1 month) History of inflammatory bowel disease Medical patient at bed rest Age 61-74 Arthroscopic surgery Major open surgery (> 45 min) Laparoscopic surgery (> 45 min) Malignancy Confined to bed (> 72 hours) Immobilizing plaster cast Central venous access Age >= 75 History of VTE Family history of VTE Factor V Leiden Prothrombin [id number] Lupus anticoagulant Anticardiolipin antibodies Elevated serum homocysteine Heparin-induced thrombocytopenia Other congenital or acquired thrombophilia Stroke (< 1 month) Elective arthroplasty Hip, pelvis, or leg fracture Acute spinal cord injury (< 1 month) Prophylaxis Regimen Total Risk Factor Score Risk Level Prophylaxis Regimen 0-1 Low Early ambulation 2 Moderate Order ONE of the following: *Sequential Compression Device (SCD) *Heparin 5000 units SQ BID 3-4 Higher Order ONE of the following medications: *Heparin 5000 units SQ TID *Enoxaparin/Lovenox 40 mg SQ daily (WT < 150 kg, CrCl > 30 mL/min) *Enoxaparin/Lovenox 30 mg SQ daily (WT < 150 kg, CrCl > 10-29 mL/min) *Enoxaparin/Lovenox 30 mg SQ BID (WT < 150 kg, CrCl > 30 mL/min) AND/OR *Sequential Compression Device (SCD) 5 or more Highest Order ONE of the following medications: *Heparin 5000 units SQ TID (Preferred with Epidurals) *Enoxaparin/Lovenox 40 mg SQ daily (WT < 150 kg, CrCl > 30 mL/min) *Enoxaparin/Lovenox 30 mg SQ daily (WT < 150 kg, CrCl > 10-29 mL/min) *Enoxaparin/Lovenox 30 mg SQ BID (WT < 150 kg, CrCl > 30 mL/min) AND *Sequential Compression Device (SCD) Assessment and Plan Assessment and Plan Symptomatic anemia we'll transfuse 2 units packed red blood cells with Lasix in between the units and Benadryl and Tylenol Breast cancer continue on tamoxifen Tobacco abuse recommend cessation duo nebs and Mucinex as needed Hypertension resume home medications Resume home other medications DVT prophylaxis Protonix Code Status Full code Discussed Condition With Patient and RN and family and ER physician assistant activities director Jamey Laguna DO Apr 01, 2017 19:00
[2017-04-01] MEDS ORDERED: PANTOPRAZOLE SOD 40 MG DELAYED RELEASE TAB PO ONE (19:30)
[2017-04-01] MEDS: DOCUSATE SODIUM 50 MG/SENNA 8.6 MG TAB PO SCH (20:29)
[2017-04-01] MEDS: guaiFENesin E.R. 600 MG TAB PO SCH (20:30)
[2017-04-01] MEDS: SODIUM CHLORIDE 0.9% FLUSH 10 ML FLUSH IV FLUSH SCH (20:31)
[2017-04-01] MEDS ORDERED: MIRTAZAPINE 15 MG TAB PO SCH (21:00)
[2017-04-02] VITALS: BP 92/44; PULSE 76; RESP 16; TEMP 98.3; O2SAT 93
[2017-04-02 01:13] VITALS: BP 92/44; PULSE 76; RESP 16; TEMP 98.3; O2SAT 93
[2017-04-02 01:33] VITALS: BP 93/48; PULSE 75; RESP 16; TEMP 97.9; O2SAT 95
[2017-04-02 04:00] VITALS: BP 102/50; PULSE 74; RESP 16; TEMP 97.3; O2SAT 93
[2017-04-02 05:45] VITALS: PULSE 69
[2017-04-02 07:56] LABS: AUTOMATED NEUTROPHIL # 1.6 TH/MM3 (1.8-7.7); BASOPHIL # 0.1 TH/MM3 (0-0.2); BASOPHIL % 2.1 % (0.0-2.0); EOSINOPHIL % 0.3 % (0.0-4.0); HEMATOCRIT 23.1 % (35.0-46.0); HEMOGLOBIN 8.2 GM/DL (11.6-15.3); LYMPH % 28.9 % (9.0-44.0); LYMPHOCYTE # 1.1 TH/MM3 (1.0-4.8); MEAN CELL VOLUME 83.3 FL (80.0-100.0); MEAN CORPUSCULAR HEMOGLOBIN 29.6 PG (27.0-34.0); MEAN CORPUSCULAR HGB CONC 35.5 % (32.0-36.0); MEAN PLATELET VOLUME 12.1 FL (7.0-11.0); MONO % 25.5 % (0.0-8.0); MONOCYTE # 0.9 TH/MM3 (0-0.9); NEUT % 43.2 % (16.0-70.0); PLATELET COUNT 47 TH/MM3 (150-450); RED BLOOD COUNT 2.77 MIL/MM3 (4.00-5.30); RED CELL DISTRIBUTION WIDTH 15.7 % (11.6-17.2); WHITE BLOOD COUNT 3.7 TH/MM3 (4.0-11.0)
[2017-04-02 08:15] LABS: ALBUMIN 2.7 GM/DL (3.4-5.0); AST (GOT) 16 U/L (15-37); BICARBONATE 27.9 MEQ/L (21.0-32.0); BLOOD UREA NITROGEN 18 MG/DL (7-18); CALCIUM 7.6 MG/DL (8.5-10.1); CHLORIDE 110 MEQ/L (98-107); CREATININE 0.53 MG/DL (0.50-1.00); GLOMERULAR FILTRATION RATE 112 ML/MIN (>89); GLUCOSE,RANDOM 84 MG/DL (74-106); MAGNESIUM 1.9 MG/DL (1.5-2.5); SODIUM (NA) 143 MEQ/L (136-145)
[2017-04-02 08:16] LABS: ALT (GPT) 6 U/L (10-53); PHOSPHORUS 2.8 MG/DL (2.5-4.9)
[2017-04-02 08:22] VITALS: BP 98/45; PULSE 75; RESP 20; TEMP 98.8; O2SAT 91
[2017-04-02 08:24] LABS: ALKALINE PHOSPHATASE 42 U/L (45-117); FREE T4 1.01 NG/DL (0.76-1.46); TOTAL BILIRUBIN ADULT 1.8 MG/DL (0.2-1.0); TOTAL PROTEIN 4.9 GM/DL (6.4-8.2)
[2017-04-02 08:34] LABS: BASOPHILS 1 % (0-2); BLASTS 2 % (0-0); CORRECTED NUCLEATED RBC 26 /100 WBC (0-0); LYMPHOCYTES 16 % (9-44); MONOCYTES 11 % (0-8); NEUTROPHIL # MANUAL DIFF 2.6 TH/MM3 (1.8-7.7); NUCLEATED RED BLOOD CELL 26 (0-0); POLYS (SEG NEUTROPHILS) 70 % (16-70)
[2017-04-02 08:38] LABS: ACANTHOCYTES OCC (NORMAL); OVALOCYTES 1+ (NORMAL)
[2017-04-02] MEDS ORDERED: TAMOXIFEN CITRATE 10 MG TAB PO SCH (09:00)
[2017-04-02] MEDS ORDERED: FUROSEMIDE 20 MG TAB PO SCH (09:00)
[2017-04-02] MEDS ORDERED: PANTOPRAZOLE SOD 40 MG DELAYED RELEASE TAB PO SCH (09:00)
[2017-04-02] MEDS: MIDODRINE 5 MG TAB PO SCH ×2 (09:29→11:42)
[2017-04-02] MEDS: guaiFENesin E.R. 600 MG TAB PO SCH (09:29)
[2017-04-02] MEDS: DOCUSATE SODIUM 50 MG/SENNA 8.6 MG TAB PO SCH (09:29)
[2017-04-02] MEDS: SODIUM CHLORIDE 0.9% FLUSH 10 ML FLUSH IV FLUSH SCH (09:30)
[2017-04-02 09:47] LABS: HEMOGLOBIN A1C 6.6 % (4.3-6.0)
--- NOTE | 2017-04-02 10:58 | HHI.PR ---
Subjective Remarks in no acute distress. received two units of PRBC. denies any chest pain, sob, or dizziness. Objective Vitals Vital Signs Date Time Temp Pulse Resp B/P (MAP) Pulse Ox O2 Delivery O2 Flow Rate FiO2 04/02/17 08:22 98.8 75 20 98/45 (62) 91 04/02/17 05:45 69 04/02/17 04:00 97.3 74 16 102/50 (67) 93 04/02/17 01:33 97.9 75 16 93/48 95 04/02/17 01:13 98.3 76 16 92/44 93 04/02/17 00:00 98.3 76 16 92/44 (60) 93 04/01/17 20:06 04/01/17 20:00 98.7 82 17 112/65 (81) 96 04/01/17 19:59 98.5 76 20 99/50 98 04/01/17 19:51 98.5 76 18 99/50 (66) 98 Room Air 04/01/17 19:00 98.0 78 18 96/51 (66) 98 Room Air 04/01/17 18:49 98.8 78 18 98/48 97 04/01/17 16:22 84 18 105/52 (69) 98 Room Air 04/01/17 16:22 83 18 98 Room Air 04/01/17 16:22 84 18 98 Room Air 04/01/17 15:41 98.3 96 20 127/58 (81) 98 Room Air I/O 04/01/17 04/01/17 04/01/17 04/02/17 04/02/17 04/02/17 07:00 15:00 23:00 07:00 15:00 23:00 Intake Total 500 ml 810 ml Balance 500 ml 810 ml Intake Oral 360 ml Packed Cells 400 ml 400 ml Blood Product IV Normal Saline Flush 100 ml 50 ml # Voids 2 Result Diagram: 04/02/1740 04/02/17 0740 Objective Remarks GENERAL: This is a well-nourished, well-developed patient, in no apparent distress. CARDIOVASCULAR: Regular rate and regular rhythm without murmurs, gallops, or rubs. RESPIRATORY: Clear to auscultation. Breath sounds equal bilaterally. No wheezes , rales, or rhonchi. GASTROINTESTINAL: Abdomen soft, non-tender, nondistended. Normal, active bowel sounds MUSCULOSKELETAL: Extremities without clubbing, cyanosis, or edema. NEURO: Alert & Oriented x4 to person, place, time, situation. Moves all ext x4 Medications and IVs Inpatient Medications Acetaminophen (Tylenol) 650 mg Q4H PRN PO SEE LABEL COMMENTS; Start 04/01/17 at 18:30 Albuterol/ Ipratropium (Duoneb Neb) 1 ampule Q4HR NEB PRN NEB SHORTNESS OF BREATH; Start 04/01/17 at 18:30 Bisacodyl (Dulcolax Supp) 10 mg DAILY PRN RECTAL SEVERE CONSITIPATION; Start at 18:30 Diphenhydramine HCl (Benadryl) 25 mg Q4H PRN PO SEE LABEL COMMENTS; Start at 18:30 Furosemide (Lasix Inj) 20 mg ONCE ONCE IV PUSH Last administered on 04/01/17at 19:58; Start 04/01/17 at 18:45; Stop 04/01/17 at 18:46; Status DC Furosemide (Lasix) 20 mg DAILY PO Last administered on 04/02/17at 09:29; Start at 09:00 Guaifenesin (Mucinex Er) 600 mg BID PO Last administered on 04/02/17at 09:29; Start 04/01/17 at 21:00 Lactulose (Lactulose Liq) 30 ml DAILY PRN PO SEVERE CONSITIPATION; Start at 18:30 Magnesium Hydroxide (Milk Of Magnesia Liq) 30 ml Q12H PRN PO Mild constipation ; Start 04/01/17 at 18:30 Metoclopramide HCl (Reglan Inj) 5 mg Q6H PRN IV PUSH NAUSEA OR VOMITING; Start 04/01/17 at 18:30 Midodrine (Proamatine) 5 mg TID@07,12,17 PO Last administered on 04/02/17at 09:29 ; Start 04/02/17 at 07:00 Mirtazapine (Remeron) 15 mg HS PO Last administered on 04/01/17at 20:30; Start at 21:00 Morphine Sulfate (Morphine Inj) 4 mg Q3H PRN IV PUSH BREAKTHROUGH PAIN; Start 04/01/17 at 18:30 Naloxone HCl (Narcan Inj) 0.4 mg UNSCH PRN IV PUSH SEE LABEL COMMENTS; Start at 18:30 Ondansetron HCl (Zofran Inj) 4 mg Q6H PRN IVP NAUSEA OR VOMITING; Start at 18:30 Oxycodone/ Acetaminophen (Percocet 5-325 Mg) 1 tab Q6H PRN PO PAIN SCALE 3 TO 5; Start 04/01/17 at 18:30 Oxycodone/ Acetaminophen (Percocet 10-325 Mg) 1 tab Q6H PRN PO PAIN SCALE 6 TO 10; Start 04/01/17 at 18:30 Pantoprazole Sodium (Protonix) 40 mg DAILY PO Last administered on 04/02/17 09: 29; Start 04/02/17 at 09:00 Senna/Docusate Sodium (Mildred-Colace) 1 tab BID PO Last administered on 04/02/17at 09:29; Start 04/01/17 at 21:00 Sennosides (Senokot) 17.2 mg Q12H PRN PO Moderate constipation; Start 04/01/17 at 18:30 Sodium Chloride 250 ml @ 15 mls/hr ONCE ONCE IV Last administered on at 18:52; Start 04/01/17 at 19:00; Stop 04/02/17 at 11:39 Sodium Chloride (NS Flush) 2 ml BID IV FLUSH Last administered on 04/02/17at 09: 30; Start 04/01/17 at 21:00 Tamoxifen Citrate (Nolvadex) 20 mg DAILY PO Last administered on 04/02/17 09:30 ; Start 04/02/17 at 09:00 Temazepam (Restoril) 15 mg HS PRN PO INSOMNIA; Start 04/01/17 at 18:30 A/P Assessment and Plan A/P Symptomatic anemia with history of MDS ; transfused with 2 units packed red blood cells . H/H improved after transfusion.has an appointment with this Tuesday. Breast cancer continue on tamoxifen Tobacco abuse recommend cessation duo nebs and Mucinex as needed Hypertension resume home medications Resumed home other medications DVT prophylaxis Protonix Discharge Planning dc home today. f/u; pcp and oncology. Andrew Hammond MD Apr 02, 2017 10:58
--- NOTE | 2017-04-02 11:00 | HHI.DCPOC ---
Discharge Care Plan Diagnosis: (1) Symptomatic anemia (2) MDS (myelodysplastic syndrome) Goals to Promote Your Health * To prevent worsening of your condition and complications * To maintain your health at the optimal level Directions to Meet Your Goals Please keep previously scheduled appointment with Dr. Crespo next week Take your medications as prescribed Follow your dietary instruction Follow activity as directed Keep your appointments as scheduled Take your immunizations and boosters as scheduled If your symptoms worsen call your PCP, if no PCP go to Urgent Care Center or Emergency Room Smoking is Dangerous to Your Health. Avoid second hand smoke Call the 24-hour hour crisis hotline for domestic abuse at Caitlyn Hickman Apr 02, 2017 11:00
== END 2017-04-02 15:16 | disposition home or self-care (01) ==
LOC: NEPC 15:39 → NEDA 18:06 → NEPGCP 19:55
PROVIDERS: ADMIT Internal Medicine; ATTEND Internal Medicine
DX: D46.9 Myelodysplastic syndrome, unspecified (principal); G37.9 Demyelinating disease of central nervous system, unspecified; R06.02 Shortness of breath; F17.200 Nicotine dependence, unspecified, uncomplicated; C50.919 Malignant neoplasm of unspecified site of unspecified female breast; D69.6 Thrombocytopenia, unspecified; R53.1 Weakness; I10 Essential (primary) hypertension; Z92.3 Personal history of irradiation; Z79.810 Long term (current) use of selective estrogen receptor modulators (SERMs)
CPT/HCPCS: 36430; 80053; 83036; 83735; 84100; 84439; 84443; 85007; 85027; 85610; 85730; 86850; 86900; 86901; 86920; 96361; 96374; 99285; G0378; J1940; J7050; P9016

== ENCOUNTER 2017-07-04 09:38 | Day surgery (SDC) | payer OTHER ==
[~2017-07-04] VITALS: Ht 157.5 cm; Wt 49.5 kg
[2017-07-04] MEDS ORDERED: BUPIVACAINE HCL PF 0.75% 30 ML VIAL ONE ×2 (09:39→11:38)
[2017-07-04] MEDS ORDERED: GABA300C5 PO (09:56)
[2017-07-04] MEDS ORDERED: BACT800T5 PO (09:56)
[2017-07-04] MEDS ORDERED: IMPLANTED VASCULAR ACCESS DEVICE/PORT - SODIUM CHLORIDE FLUSH IV FLUSH SCH (10:00)
[2017-07-04] MEDS ORDERED: SODIUM CHLOR 0.9% 1000 ML IV SCH (10:00)
[2017-07-04] MEDS ORDERED: IMPLANTED VASCULAR ACCESS DEVICE/PORT - SODIUM CHLORIDE FLUSH PRN IV FLUSH (10:00)
[2017-07-04 10:04] VITALS: BP 126/58; PULSE 66; RESP 16; TEMP 97.8; O2SAT 98
[2017-07-04 10:37] LABS: HEMOGLOBIN 9.5 GM/DL (11.6-15.3); MEAN CORPUSCULAR HEMOGLOBIN 30.7 PG (27.0-34.0); MEAN CORPUSCULAR HGB CONC 34.1 % (32.0-36.0); MEAN PLATELET VOLUME 11.3 FL (7.0-11.0); PLATELET COUNT 32 TH/MM3 (150-450); RED BLOOD COUNT 3.11 MIL/MM3 (4.00-5.30); RED CELL DISTRIBUTION WIDTH 15.8 % (11.6-17.2); WHITE BLOOD COUNT 1.9 TH/MM3 (4.0-11.0)
[2017-07-04] MEDS ORDERED: fentaNYL CITRATE 250 MCG/5 ML AMP ONE (11:22)
[2017-07-04] MEDS ORDERED: MIDAZOLAM HCL 2 MG/2 ML VIAL ONE (11:22)
[2017-07-04 11:47] LABS: BANDS 2 % (0-6); LYMPHOCYTES 29 % (9-44); MONOCYTES 8 % (0-8); NEUTROPHIL # MANUAL DIFF 1.2 TH/MM3 (1.8-7.7); POLYS (SEG NEUTROPHILS) 61 % (16-70)
[2017-07-04 11:48] LABS: OVALOCYTES 1+ (NORMAL)
[2017-07-04 12:05] VITALS: BP 100/49; PULSE 69; RESP 18; TEMP 96.7; O2SAT 98
--- NOTE | 2017-07-04 12:17 | RADRPT ---
EXAM DATE/TIME: 07/04/2017 11:39 [place] COMPARISON: No previous studies available for comparison. INDICATIONS : Myelodysplastic syndrome SEDATION TIME: 15 minutes BIOPSY SITE: Right ilium MEDICATION(S): 1.) 1.5 mg midazolam (Versed) IV 2.) 75 mcg fentanyl (Sublimaze) IV DEVICE(S): 1.) 12 gauge On-Control needle MEDICAL HISTORY : Carcinoma, breast. Gastroesophageal reflux disease. SURGICAL HISTORY : None. ENCOUNTER: Initial ACUITY: 1 day PAIN SCORE: 0/10 LOCATION: Right ilium A total of one core specimen(s) were obtained and sent to the laboratory for pathologic evaluation. PROCEDURE: 1. CT guided bone marrow biopsy. 2. Conscious sedation with continuous EKG and oximetry monitoring. 3. EKG and oximetry remained stable throughout the procedure. Prior to the procedure informed consent was obtained. Any appropriate prior imaging studies were rev iewed. Using automated exposure control and adjustment of the mA and/or kV according to patient size , radiation dose was kept as low as reasonably achievable to obtain optimal diagnostic quality images . DICOM format image data is available electronically for review and comparison. The site was prepped in a sterile fashion. Full sterile technique was used, including cap, mask, sergio rile gloves and gown and a large sterile sheet. Hand hygiene and 2% chlorhexidine and/or betadine/al cohol prep was utilized per protocol for cutaneous antisepsis. The skin and subcutaneous tissues wer e infiltrated with local anesthetic solution. With CT guidance the previously identified target was localized. Biopsy was performed using the presc ribed needle as above. Following biopsy marrow aspiration was performed with repeat puncture. Adequa te hemostasis was obtained with compression at the puncture site. Follow-up CT scan reveals no hemorrhage. Conscious sedation was performed with the prescribed dosages and duration as above in the presence of an independent trained radiology nurse to assist in the monitoring of the patient. EKG and oximetry remained stable throughout the procedure. The patient tolerated the procedure well and there were no complications. The patient was sent to Radiology Outpatient Unit in stable condition. CONCLUSION: 1. Uncomplicated CT guided bone marrow aspirate. 2. Uncomplicated CT guided bone marrow biopsy. Jamey Galindo MD FACR on July 04, 2017 at 12:14 Board Certified Radiologist. This report was verified electronically.
[2017-07-04 12:20] VITALS: BP 92/40; PULSE 63; RESP 16; O2SAT 95
[2017-07-04 12:50] VITALS: BP 89/46; PULSE 66; RESP 16; O2SAT 96
[2017-07-04 13:20] VITALS: BP 94/43; PULSE 76; RESP 20; O2SAT 96
== END 2017-07-04 14:45 | disposition home or self-care (01) ==
LOC: HRAD 09:38 → HRIP 09:38 → HRAD 14:45
PROVIDERS: ATTEND Internal Medicine Hematology & Oncology
DX: D61.818 Other pancytopenia (principal); K21.9 Gastro-esophageal reflux disease without esophagitis; Z85.3 Personal history of malignant neoplasm of breast
CPT/HCPCS: 38222; 77012; 85007; 85027; 85097; 88184; 88185; 88237; 88264; 88280; 88305; 88311; 88313; 99152; C1830; J2250; J3010; 99211; G0463

== ENCOUNTER 2017-09-03 03:38 | Emergency (ER) | payer OTHER ==
[~2017-09-03 03:38] MED LIST changes: +BACT800T5 PO; -FURO20TA PO; +GABA300C5 PO; -MIRTA15 PO
[2017-09-03 03:40] VITALS: BP 103/51; PULSE 110; RESP 16; TEMP 98.8; O2SAT 93
[2017-09-03] MEDS ORDERED: GABA300C5 PO (03:55)
[2017-09-03] MEDS ORDERED: IBUP1TAB5 PO (03:55)
[2017-09-03] MEDS ORDERED: MIDO10TA PO (03:55)
[2017-09-03] MEDS ORDERED: TYLETAB34 PO (03:55)
--- NOTE | 2017-09-03 04:13 | PD ---
HPI Chief Complaint: ENT Complaint Time Seen by Provider: 03:51 Travel History International Travel<30 days: No Contact w/Intl Traveler<30days: No Traveled to known affect area: No History of Present Illness HPI Patient is a 77-year-old female who has breast CA and myleplastic disorder recently had elevation of wbc to 32 was on Vidaza and failed that treatment , Now blast like crisis according to her her who is bedside. He is giving info of HPI .. she has been at home with him he has been trying to manage her cancer and her pain she Bactrim to her port daily IV .. she is taking Tylenol with codeine for the pain but it is getting much worse she is having difficulty swallowing she is having difficulty maintaining the pain and he comes in the middle the night due to pain progressively getting worse difficulty swallowing getting worse Dr. Ortiz that is the oncologist. Patient's pain is localized to the right jaw of right ear and posterior pharynx right-sided. Tylenol with codeine is not helping the pain she is followed by hospice and her says it is difficult to manage her at home anymore with this pain and inability to swallow she is sleeping calmly in the bed no signs of distress no signs of drooling no signs of sepsis at this time PFSH Past Medical History Anemia: Yes Asthma: No Autoimmune Disease: No Heart Rhythm Problems: Yes (MURMUR) Cancer: Yes (BREAST, LEUKEMIA) Cardiovascular Problems: Yes High Cholesterol: No Chemotherapy: Yes (CURRENT) Chest Pain: No Congestive Heart Failure: No COPD: No Diabetes: No Endocrine: No Genitourinary: No Hepatitis: No Hypertension: Yes Immune Disorder: No Medical other: No Musculoskeletal: No Neurologic: No Psychiatric: No Reproductive: No Respiratory: Yes Immunizations Current: Yes Radiation Therapy: Yes (2016) Sleep Apnea: No Thyroid Disease: No Past Surgical History Abdominal Surgery: Yes AICD: No Cardiac Surgery: No Cholecystectomy: Yes Ear Surgery: No Endocrine Surgery: No Eye Surgery: Yes (cataract removal) Genitourinary Surgery: No Gynecologic Surgery: Yes Hysterectomy: Yes Joint Replacement: No Oral Surgery: Yes (tonsillectomy) Pacemaker: No Thoracic Surgery: No Tonsillectomy: Yes Other Surgery: Yes (RIGHT LUMPECTOMY) Social History Alcohol Use: No Tobacco Use: Yes Substance Use: No Allergies-Medications (Allergen,Severity, Reaction): Coded Allergies: penicillin G (Verified Allergy, Severe, SWELLING, RASH, 09/03/17) Penicillins (Verified Allergy, Unknown, 09/03/17) Reported Meds & Prescriptions Reported Meds & Active Scripts Active Reported Tylenol-Codeine #3 (Acetaminophen-Codeine) 300-30 mg Tab 1 Tab PO Q4H PRN Midodrine 10 Mg Tab 10 Mg PO TID Ibuprofen 400 Mg Tab 400 Mg PO Q4H PRN Gabapentin 300 Mg Cap 300 Mg PO DAILY Bactrim DS (Sulfamethoxazole-Trimethoprim) 800-160 Mg Tab 1 Tab PO BID Review of Systems Except as stated in HPI: all other systems reviewed are Neg HENT: Positive: Sore Throat, Rhinitis, Neck Pain Respiratory: Positive: Shortness of Breath Physical Exam Narrative GENERAL: Nontoxic-appearing SKIN: Warm and dry. HEAD: Atraumatic. Normocephalic. EYES: Pupils equal and round. No scleral icterus. No injection or drainage. ENT: Posterior pharynx is covered in a plaquish white film appears like thrush as well as possible purulence submental node severely tender and swollen NECK: Trachea midline. No JVD. Anterior cervical nodes swollen tender CARDIOVASCULAR: Regular rate and rhythm. RESPIRATORY: No accessory muscle use. Clear to auscultation. Breath sounds equal bilaterally. GASTROINTESTINAL: Abdomen soft, non-tender, nondistended. Hepatic and splenic margins not palpable. MUSCULOSKELETAL: Extremities without clubbing, cyanosis, or edema. No obvious deformities. NEUROLOGICAL: Awake and alert. No obvious cranial nerve deficits. Motor grossly within normal limits. Five out of 5 muscle strength in the arms and legs. Normal speech. PSYCHIATRIC: Appropriate mood and affect; insight and judgment normal. Data Data Last Documented VS Vital Signs Date Time Temp Pulse Resp B/P (MAP) Pulse Ox O2 Delivery O2 Flow Rate FiO2 09/03/17 13:39 09/03/17 12:32 96 14 98 Nasal Cannula 2.00 09/03/17 03:40 98.8 Orders Orders Clindamycin 600 Mg/Ns Premix (Cleocin 60 (09/03/17 04:15) Dexamethasone Inj (Decadron Inj) (09/03/17 04:15) Morphine Inj (Morphine Inj) (09/03/17 04:15) Lactic Acid (09/03/17 04:08) Blood Culture (09/03/17 04:08) Ct Soft Tiss Neck W/O Iv Cont (09/03/17 ) Complete Blood Count With Diff (09/03/17 04:34) Comprehensive Metabolic Panel (09/03/17 04:34) Naloxone Inj (Narcan Inj) (09/03/17 05:30) Ed Discharge Order (09/03/17 11:27) Labs Laboratory Tests Test 09/03/17 04:35 White Blood Count 85.7 TH/MM3 Red Blood Count 3.26 MIL/MM3 Hemoglobin 9.2 GM/DL Hematocrit 28.1 % Mean Corpuscular Volume 86.2 FL Mean Corpuscular Hemoglobin 28.1 PG Mean Corpuscular Hemoglobin Concent 32.6 % Red Cell Distribution Width 17.0 % Platelet Count 121 TH/MM3 Mean Platelet Volume 9.2 FL Neutrophils (%) (Auto) 95.6 % Lymphocytes (%) (Auto) 2.7 % Monocytes (%) (Auto) 1.5 % Eosinophils (%) (Auto) 0.1 % Basophils (%) (Auto) 0.1 % Neutrophils # (Auto) 81.8 TH/MM3 Lymphocytes # (Auto) 2.3 TH/MM3 Monocytes # (Auto) 1.3 TH/MM3 Eosinophils # (Auto) 0.1 TH/MM3 Basophils # (Auto) 0.1 TH/MM3 CBC Comment AUTO DIFF Differential Total Cells Counted 100 Neutrophils % (Manual) 1 % Lymphocytes % 11 % Neutrophils # (Manual) 0.9 TH/MM3 Nucleated Red Blood Cells 1 /100 WBC Differential Comment FINAL DIFF MANUAL Blastocytes 88 % Platelet Estimate LOW Platelet Morphology Comment ENLARGED Blood Urea Nitrogen 19 MG/DL Creatinine 0.44 MG/DL Random Glucose 118 MG/DL Total Protein 6.2 GM/DL Albumin 2.3 GM/DL Calcium Level 8.6 MG/DL Alkaline Phosphatase 102 U/L Aspartate Amino Transf (AST/SGOT) 44 U/L Alanine Aminotransferase (ALT/SGPT) 22 U/L Total Bilirubin 0.7 MG/DL Sodium Level 141 MEQ/L Potassium Level 3.7 MEQ/L Chloride Level 104 MEQ/L Carbon Dioxide Level 29.2 MEQ/L Anion Gap 8 MEQ/L Estimat Glomerular Filtration Rate 138 ML/MIN Lactic Acid Level 1.0 mmol/L [facility] Medical Decision Making Medical Screen Exam Complete: Yes Emergency Medical Condition: Yes Medical Record Reviewed: Yes Differential Diagnosis neck mass vs infectious cervical jaw or larynx bacterial tracheitis worsening myeloplastic disease possible hospice referral needed Narrative Course pt has elevated WBC 85 it was 32 a week ago . after treated for possible neck infectious and swelling decadron clindamycin and morhine pt is having more difficulty breathing since pain medication IV possibly MS 4mg IVP may be causing respiratory depression I reverse opiod effects with 0.1mg Narcan and then Repeat it.. pt now more awake and breathing improved , will have Hospice come bedside for hospice placement and I spoke to Dr Moses to ask for ONC input,,, CT does not demonstrate any significant narrowing of airway and sphenoid sinus is completely opacified treated with IV Clindamycin she already got BActrim From port from home treatment , pt improved after narcan, awaiting hospice Dr Black Lucio felt inpt admission not needed when I presented case to her for possible admission Diagnosis Primary Impression: Difficulty breathing Additional Impression: Hospice care Enrike Proctor MD Sep 03, 2017 04:13
[2017-09-03] MEDS ORDERED: CLINDAMYCIN 600 MG/NS PREMIX 50 ML IV ONE (04:15)
[2017-09-03] MEDS ORDERED: MORPHINE SULFATE 4 MG/ML INJ IV PUSH ONE (04:15)
[2017-09-03] MEDS ORDERED: DEXAMETHASONE SOD PHOS 4 MG/ML VIAL IV PUSH ONE (04:15)
--- NOTE | 2017-09-03 04:49 | RADRPT ---
EXAM DATE: 09/03/2017 4:44 AM EDT AGE/SEX: 77 years / Female INDICATIONS: Dysphagia. Right ear pain. CLINICAL DATA: This is the patient's initial encounter. Patient reports that signs and symptoms have been present for 1 day and indicates a pain score of 8/10. MEDICAL/SURGICAL HISTORY: Carcinoma, breast. Leukemia. Tonsillectomy. RADIATION DOSE: 13.08 CTDI (mGy) COMPARISON: No prior exams available for comparison. TECHNIQUE: Helical acquisition was performed using a multirow detector CT scanner without contrast. Using automated exposure control and adjustment of the mA and/or kV according to patient size, radiat ion dose was kept as low as reasonably achievable to obtain optimal diagnostic quality images. FINDINGS: There is near-complete opacification of the sphenoid sinus and mucosal thickening in the right maxill elbert sinus. Retention cyst left maxillary sinus. Right mastoid air cells are opacified. No abnormal fluid collections in the neck. Right sided port central line enters right internal jugula r vein. No thyroid masses. No airway obstructing lesions or foreign bodies. Lung apices are clear except for minimal emphysema. CONCLUSION: 1. Sphenoid sinus, right maxillary sinus and right mastoid air cell disease. 2. No adenopathy. Minimal emphysema. Right-sided port present in the internal jugular vein. Electronically signed by: Alonso Martin MD 09/03/2017 4:48 AM EDT
[2017-09-03 04:53] LABS: AUTOMATED NEUTROPHIL # 81.8 TH/MM3 (1.8-7.7); BASOPHIL # 0.1 TH/MM3 (0-0.2); BASOPHIL % 0.1 % (0.0-2.0); EOSINOPHIL # 0.1 TH/MM3 (0-0.4); EOSINOPHIL % 0.1 % (0.0-4.0); HEMATOCRIT 28.1 % (35.0-46.0); HEMOGLOBIN 9.2 GM/DL (11.6-15.3); LYMPH % 2.7 % (9.0-44.0); LYMPHOCYTE # 2.3 TH/MM3 (1.0-4.8); MEAN CELL VOLUME 86.2 FL (80.0-100.0); MEAN CORPUSCULAR HEMOGLOBIN 28.1 PG (27.0-34.0); MEAN CORPUSCULAR HGB CONC 32.6 % (32.0-36.0); MEAN PLATELET VOLUME 9.2 FL (7.0-11.0); MONO % 1.5 % (0.0-8.0); MONOCYTE # 1.3 TH/MM3 (0-0.9); NEUT % 95.6 % (16.0-70.0); PLATELET COUNT 121 TH/MM3 (150-450); RED BLOOD COUNT 3.26 MIL/MM3 (4.00-5.30); WHITE BLOOD COUNT 85.7 TH/MM3 (4.0-11.0)
[2017-09-03 05:19] LABS: ALBUMIN 2.3 GM/DL (3.4-5.0); ALT (GPT) 22 U/L (10-53); AST (GOT) 44 U/L (15-37); BICARBONATE 29.2 MEQ/L (21.0-32.0); BLOOD UREA NITROGEN 19 MG/DL (7-18); CALCIUM 8.6 MG/DL (8.5-10.1); CHLORIDE 104 MEQ/L (98-107); CREATININE 0.44 MG/DL (0.50-1.00); GLOMERULAR FILTRATION RATE 138 ML/MIN (>89); GLUCOSE,RANDOM 118 MG/DL (74-106); SODIUM (NA) 141 MEQ/L (136-145)
[2017-09-03 05:22] LABS: ALKALINE PHOSPHATASE 102 U/L (45-117); TOTAL BILIRUBIN ADULT 0.7 MG/DL (0.2-1.0); TOTAL PROTEIN 6.2 GM/DL (6.4-8.2)
[2017-09-03] MEDS ORDERED: NALOXONE HCL 0.4 MG/ML AMP IV PUSH PRN (05:30)
[2017-09-03 06:36] LABS: BLASTS 88 % (0-0); CORRECTED NUCLEATED RBC 1 /100 WBC (0-0); LYMPHOCYTES 11 % (9-44); NEUTROPHIL # MANUAL DIFF 0.9 TH/MM3 (1.8-7.7); NUCLEATED RED BLOOD CELL 1 (0-0); POLYS (SEG NEUTROPHILS) 1 % (16-70)
[2017-09-03 07:00] VITALS: BP 96/50; PULSE 107; RESP 18; O2SAT 96
[2017-09-03 09:38] VITALS: BP 114/55; PULSE 91; RESP 16; O2SAT 96
[2017-09-03 12:32] VITALS: BP 117/57; PULSE 96; RESP 14; O2SAT 98
== END 2017-09-03 13:40 | disposition short-term general hospital (02) ==
LOC: NEPE 03:38
DX: R06.00 Dyspnea, unspecified (principal); D72.829 Elevated white blood cell count, unspecified; R07.0 Pain in throat; H92.01 Otalgia, right ear; R13.10 Dysphagia, unspecified; I10 Essential (primary) hypertension; C50.919 Malignant neoplasm of unspecified site of unspecified female breast; C94.6 Myelodysplastic disease, not elsewhere classified; Z51.5 Encounter for palliative care
CPT/HCPCS: 70490; 80053; 83605; 85007; 85027; 87040; 96374; 96375; 99284; J1100; J2270